=== PATIENT | male | born 1950 | race Caucasian/White ===

== ENCOUNTER 2019-05-11 12:59 | Inpatient (IN) | payer OTHER, MEDICARE ==
[~2019-05-11] VITALS: Ht 182.9 cm; Wt 136.0 kg
[~2019-05-11 12:59] MED LIST: ATOR20; ATOR20 PO; Acidophilus La100 GM; Aspir 8181 MG PO; CITA20 PO; DILT30 PO; GABA300; Loradamed10 MG PO; METF500C PO; METO25 PO; METO25ER; Minipress2 MG; Omeprazole20 M1; Omeprazole20 M1 PO; PREG75 PO; TOCO400 PO; WARF5 PO; ZESTORETIC 20-121 EA PO
[2019-05-11 14:23] LABS: BASOPHILS ABSOLUTE AUTO 0.01 K/mm3 (0.00-0.23); BASOPHILS PERCENT AUTO 0 % (0-2); EOSINOPHILS ABSOLUTE AUTO 0.01 K/mm3 (0.00-0.68); EOSINOPHILS PERCENT AUTO 0 % (0-6); Hematocrit 38.3 % (37.0-53.0); Hemoglobin 13.3 g/dL (13.5-17.5); Mean Corpuscular HGB 29.6 pg (26.0-34.0); Mean Corpuscular HGB Conc 34.7 g/dL (31.5-36.5); Mean Corpuscular Volume 85 fL (80-100); Mean Platelet Volume 10.7 fL (9.1-12.4); Platelet Count 166 K/mm3 (150-400); RDW Coefficient Variation 13.8 % (11.7-14.2); RDW Standard Deviation 42.3 fL (35.1-46.3); Red Blood Cell Count 4.49 M/mm3 (4.30-5.90); White Blood Cell Count 7.65 K/mm3 (4.00-11.30)
[2019-05-11 14:27] LABS: IMMATURE GRAN ABSOLUTE AUTO 0.02 K/mm3 (0.00-0.10); IMMATURE GRAN PERCENT AUTO 0 % (0-1); LYMPHOCYTES ABSOLUTE AUTO 0.64 K/mm3 (0.84-5.20); LYMPHOCYTES PERCENT AUTO 8 % (21-46); MONOCYTES ABSOLUTE AUTO 0.05 K/mm3 (0.16-1.47); MONOCYTES PERCENT AUTO 1 % (4-13); NEUTROPHILS ABSOLUTE AUTO 6.92 K/mm3 (1.96-9.15); NEUTROPHILS PERCENT AUTO 90 % (41-73)
[2019-05-11 14:37] LABS: Albumin, Blood 3.4 g/dL (3.4-5.0); Bilirubin, Total 1.1 mg/dL (0.1-1.0); Bun/Creatinine Ratio 14.7 (12.0-20.0); Calcium, Blood 7.7 mg/dL (8.5-10.1); Creatinine, Blood 1.29 mg/dL (0.60-1.20); Globulin, Blood 3.4 g/dL (2.2-4.0); International Normalized Ratio 3.74; Potassium, Blood 2.3 mmol/L (3.5-5.5); Prothrombin Time Results 35.2 Sec (9.7-11.5); Total Protein, Blood 6.8 g/dL (6.4-8.2)
[2019-05-11 14:40] LABS: Source, Urine Catheter
[2019-05-11 14:51] LABS: Appearance, Urine Hazy (Clear); Bilirubin, Urine Neg (Neg); Blood, Urine 5+ (Neg); Color, Urine Yellow (P-Yellow); Glucose Qualitative, Urine Neg (Neg); Ketones, Urine Neg (Neg); Leukocyte Esterase, Urine 3+ (Neg); Nitrite, Urine Neg (Neg); Protein, Urine 3+ (Neg); Specific Gravity, Urine 1.015 (1.003-1.022); Urobilinogen, Urine NORM (Normal)
[2019-05-11 14:59] LABS: Red Blood Cells, Urine 50-100 /hpf (0-2)
[2019-05-11 15:00] LABS: White Blood Cells, Urine 25-50 /hpf (0-5)
[2019-05-11 15:01] LABS: Bacteria Mod /hpf; Squamous Epithelial Cells Few /hpf (Few)
[2019-05-11] MEDS ORDERED: ALLO300 PO (15:09)
[2019-05-11] MEDS ORDERED: Vitamin D2000 UNIT PO (15:10)
[2019-05-11] MEDS ORDERED: FURO40 PO (15:11)
[2019-05-11] MEDS ORDERED: POTCHL20ER PO (15:13)
[2019-05-11] MEDS ORDERED: WARF5 PO (15:42)
[2019-05-11 16:37] LABS: Creatine Kinase MB 4.1 ng/mL (0.0-3.6)
[2019-05-11 18:10] LABS: PCO2 Arterial 33.5 mmHg (35-45); PO2 Arterial 74.8 mmHg (80-100); pH Blood Arterial 7.43 (7.35-7.45)
--- NOTE | 2019-05-11 18:19 | NUR ---
REPORT RECEIVED FROM ANSON ALTAMIRANO IN EMERGENCY DEPARTMENT
[2019-05-11 19:46] LABS: Bun/Creatinine Ratio 13.9 (12.0-20.0); Calcium, Blood 7.1 mg/dL (8.5-10.1); Creatinine, Blood 1.51 mg/dL (0.60-1.20); Magnesium, Blood 0.8 mg/dL (1.6-2.4); Potassium, Blood 2.8 mmol/L (3.5-5.5)
[2019-05-11] MEDS ORDERED: PRAZ1 PO (21:13)
[2019-05-11] MEDS ORDERED: Lyrica75 MG PO (21:14)
[2019-05-11] MEDS ORDERED: TAMS.4ER PO (21:15)
[2019-05-11 22:03] LABS: Source, Urine Catheter
[2019-05-11 22:08] LABS: Appearance, Urine Cloudy (Clear); Bilirubin, Urine Neg (Neg); Blood, Urine 5+ (Neg); Color, Urine Amber (P-Yellow); Glucose Qualitative, Urine Neg (Neg); Ketones, Urine 1+ (Neg); Leukocyte Esterase, Urine 3+ (Neg); Nitrite, Urine Neg (Neg); Protein, Urine 3+ (Neg); Urobilinogen, Urine NORM (Normal)
[2019-05-11 22:20] LABS: Amorphous Light (0-Heavy); Bacteria Mod /hpf; Red Blood Cells, Urine TNTC /hpf (0-2); Squamous Epithelial Cells Rare /hpf (Few); White Blood Cells, Urine TNTC /hpf (0-5)
--- NOTE | 2019-05-12 | NUR ---
ARRIVAL TO ICU SINCE ARRIVAL TO ICU, PT HAS BEEN ALERT, ORIENTED AND FOLLOWING DIRECTIONS. BP BORDERLINE BUT FLUID RESPONSIVE, SEE FLOWSHEET. OXYGEN SATURATIONS GREATER THAN 90% ON 2 LPM OR WITH USE OF HOME CPAP. PT'S AND DAUGHTER AT BEDSIDE THIS EVENING AND WERE ABLE TO ASSIST WITH HEALTH HISTORY AND MEDICATION RECONCILIATION. KEYES PRESENT ON ADMISSION REPLACED PER PROTOCOL. PT UP TO BEDSIDE COMMODE ONCE FOR URGENT BOWEL MOVEMENT, STOOL SAMPLE SENT TO LAB. PT DID HAVE SMALL AMOUNT OF INCONTINENCE DUE TO THIS URGENCY. ELECTROLYTES ARE BEING REPLACED PER ORDERS. DR. KUMARI AND KRYSTINA, DELIVERY CREW WORKER BOTH TO BEDSIDE FOR ASSESSMENT SINCE ARRIVAL. PT ORIENTED TO CALL LIGHT BUT HAS NOT USED IT SINCE ARRIVAL.
[2019-05-12 00:30] LABS: Campylobacter Sp Not Detected (NOT DETECT)
[2019-05-12 00:31] LABS: Adenovirus F 40/41 Not Detected (NOT DETECT); Astrovirus Not Detected (NOT DETECT); Cryptosporidium Not Detected (NOT DETECT); Cyclospora Cayetanensis Not Detected (NOT DETECT); E. Coli O157 Not Detected (NOT DETECT); Entamoeba Histolytica Not Detected (NOT DETECT); Enteroaggregative E. coli-EAEC Not Detected (NOT DETECT); Enteropathogenic E. coli-EPEC Not Detected (NOT DETECT); Enterotoxigenic E. coli-ETEC Not Detected (NOT DETECT); Giardia Lamblia Not Detected (NOT DETECT); Norovirus GI/GII Not Detected (NOT DETECT); Plesiomonas Shigelloides Not Detected (NOT DETECT); Rotavirus A Not Detected (NOT DETECT); Salmonella Sp Not Detected (NOT DETECT); Sapovirus Not Detected (NOT DETECT); Shiga Toxin-prod E. coli-STEC Not Detected (NOT DETECT); Shigella/Enteroin E. coli-EIEC Not Detected (NOT DETECT); Vibrio Cholerae Not Detected (NOT DETECT); Vibrio Sp Not Detected (NOT DETECT); Yersinia Enterocolitica Not Detected (NOT DETECT)
[2019-05-12 01:00] LABS: Magnesium, Blood 1.2 mg/dL (1.6-2.4)
[2019-05-12 01:01] LABS: Potassium, Blood 3.2 mmol/L (3.5-5.5)
[2019-05-12 01:18] LABS: Phosphorus, Blood 4.2 mg/dL (2.5-4.9)
[2019-05-12] MEDS ORDERED: CEPH500 PO (03:28)
[2019-05-12 06:22] LABS: Hematocrit 33.9 % (37.0-53.0); Hemoglobin 11.3 g/dL (13.5-17.5); Mean Corpuscular HGB Conc 33.3 g/dL (31.5-36.5); Mean Platelet Volume 10.1 fL (9.1-12.4); Platelet Count 136 K/mm3 (150-400); RDW Coefficient Variation 14.4 % (11.7-14.2); RDW Standard Deviation 47.1 fL (35.1-46.3); Red Blood Cell Count 3.77 M/mm3 (4.30-5.90); White Blood Cell Count 19.42 K/mm3 (4.00-11.30)
[2019-05-12 06:24] LABS: Mean Corpuscular Volume 90 fL (80-100)
--- NOTE | 2019-05-12 06:24 | NUR ---
SUMMARY SINCE PREVIOUS NOTE, BLOOD PRESSURE HAS STABALIZED. PT CONTINUES TO BE AFEBRILE. PT HAS SLEPT THE MAJORITY OF THE NIGHT ON HIS CPAP, AROUSING EASILY FOR REASSESSMENTS. PT HAS DENIED PAIN/DISCOMFORT. STAND BY ASSIST TO USE BEDSIDE COMMODE. PT CONTINUES TO HAVE LIQUID, BROWN STOOL. PT HAS TOLERATED JELLO WITHOUT NAUSEA OR ABDOMINAL DISCOMFORT. SEE FLOWSHEETS/ASSESSMENTS.
[2019-05-12 06:32] LABS: International Normalized Ratio 2.76; Prothrombin Time Results 26.7 Sec (9.7-11.5)
[2019-05-12 06:42] LABS: Albumin, Blood 2.8 g/dL (3.4-5.0); Albumin/Globulin Ratio 0.9 (0.8-1.8); Bilirubin, Total 0.8 mg/dL (0.1-1.0); Calcium, Blood 7.2 mg/dL (8.5-10.1); Creatinine, Blood 1.33 mg/dL (0.60-1.20); Globulin, Blood 3.2 g/dL (2.2-4.0); Magnesium, Blood 1.7 mg/dL (1.6-2.4); Phosphorus, Blood 3.3 mg/dL (2.5-4.9); Potassium, Blood 3.7 mmol/L (3.5-5.5)
[2019-05-12 06:43] LABS: BAND PERCENT MAN 21 % (0-8); BASOPHILS PERCENT MAN 0 % (0-2); EOSINOPHILS PERCENT MAN 0 % (0-6); LYMPHOCYTES ABSOLUTE MAN 1.35 K/mm3 (0.84-5.20); LYMPHOCYTES PERCENT MAN 7 % (21-46); MONOCYTES ABSOLUTE MAN 0.38 K/mm3 (0.16-1.47); MONOCYTES PERCENT MAN 2 % (4-13); MYELOCYTE ABSOLUTE MAN 0.38 K/mm3 (0.00-0.00); MYELOCYTE PERCENT MAN 2 % (0-0); NEUTROPHILS ABSOLUTE MAN 17.28 K/mm3 (1.96-9.15); SEG NEUTROPHILS PERCENT MAN 68 % (41-73); TOTAL CELLS COUNTED 100
--- NOTE | 2019-05-12 07:07 | NUR ---
REPORT/CRITICAL RECEIVED CRITICAL BLOOD CULTURE VALUE. REPORT TO ANSON MARRERO TO ASSUME CARE AND REPORT LAB TO . BEDSIDE ROUDING COMPLETED.
--- NOTE | 2019-05-12 09:48 | NUR ---
0700-ASSUMED CARE OF PT. PT IS SLEEPING SOUNDLY WEARING HIS CPAP. WILL ALLOW PATIENT TO SLEEP IN FOR A LITTLE BIT. 0800-PT'S CHRISTINA CALLED FOR UPDATES ON PATIENT. UPDATED HER OF PT'S STATUS 0845-PT AWAKE. ALERT AND ORIENTED. DENIES PAIN. HELPED PT TO THE BEDSIDE COMMODE. PT IS STEADY ON HIS FEET BUT SHORT OF BREATH, ESPECIALLY WITH EXERTION. STARTED PT ON 2 LPM NC OTHERWISE PT WAS ON ROOM AIR ON INTIAL ASSESSMENT WITH CLEAR UPPER AIRWAYS AND DIMINISHED BASES. NOTED PT TO BE WHEEZING WITH EXCERTION. 0948-PT IS CURRENTLY SLEEPING AT THIS TIME AFTER HAVING HIS BREAKFAST.
--- NOTE | 2019-05-12 11:36 | NUR ---
PT SEEN BY DR. KUMARI. UPDATED HIM OF PT'S STATUS. LAB & BLOOD CULTURE RESULTS. FREQUENT BMs - DIARRHEA. ORDERS RECEIVED.
--- NOTE | 2019-05-12 12:30 | NUR ---
DR. ESTRADA CAME BY TO SEE PATIENT. UPDATED HIM OF PATENT'S STATUS.
--- NOTE | 2019-05-12 20:00 | NUR ---
ASSUMED CARE OF PT, REPORT RCV'D FROM ELIDA DILLON RN. PT ALERT AND ORIENTED LAYING IN BED. PT COMPLAINS OF "SHAKING" AND FEELING LIKE HE "HAS A FEVER". TEMPERATURE CHECKED AND PT AFEBRILE. PT ASSISTED TO BEDSIDE COMMODE WHERE HE HAD SMALL LOOSE BOWEL MOVEMENT. PT VERY DYSPNEIC WITH ACTIVITY AND REPORTS FEELING "LIGHTHEADED". O2 SATS REMAINED ABOVE 90'S. AUDIBLE EXPIRATORY WHEEZES HEARD. PT USING HOME CPAP WHILE SLEEPING. VSS. PLEASE SEE FULL SHIFT ASSESSMENT.
--- NOTE | 2019-05-13 05:38 | NUR ---
SHIFT SUMMARY NO ACUTE CHANGES OVERNIGHT. PT'S VSS, NO INCREASING OXYGEN NEEDS, NO NEW COMPLAINTS FROM PT. PT HAD 3 SMALL LOOSE BOWELS THAT PROGRESSIVELY APPEARED MORE FORMED. PT CONTINENT OF BOWEL AND ABLE TO STAND AND PIVOT TO BEDSIDE COMMODE WITH 1-PERSON ASSIST AND MODERATE EXERTION. PT QUICKLY DYSPNEIC WITH ANY EXERTION, AUDIBLE EXPIRATORY WHEEZES HEARD. PT ABLE TO RECOVER SLOWLY AFTER RETURNING TO BED AND USING HOME CPAP. WILL REPORT TO DAYSHIFT NURSE.
[2019-05-13 06:39] LABS: Hematocrit 31.5 % (37.0-53.0); Hemoglobin 10.7 g/dL (13.5-17.5); Mean Corpuscular HGB 29.9 pg (26.0-34.0); Mean Corpuscular Volume 88 fL (80-100); Mean Platelet Volume 10.6 fL (9.1-12.4); Platelet Count 128 K/mm3 (150-400); RDW Coefficient Variation 14.3 % (11.7-14.2); RDW Standard Deviation 45.9 fL (35.1-46.3); Red Blood Cell Count 3.58 M/mm3 (4.30-5.90); White Blood Cell Count 15.39 K/mm3 (4.00-11.30)
[2019-05-13 07:10] LABS: BASOPHILS PERCENT MAN 0 % (0-2); EOSINOPHILS PERCENT MAN 0 % (0-6); LYMPHOCYTES ABSOLUTE MAN 0.92 K/mm3 (0.84-5.20); LYMPHOCYTES PERCENT MAN 6 % (21-46); MONOCYTES ABSOLUTE MAN 0.76 K/mm3 (0.16-1.47); MONOCYTES PERCENT MAN 5 % (4-13); NEUTROPHILS ABSOLUTE MAN 13.69 K/mm3 (1.96-9.15); SEG NEUTROPHILS PERCENT MAN 89 % (41-73); TOTAL CELLS COUNTED 100
[2019-05-13 07:44] LABS: Alanine Aminotransfer (ALT/SGP 28 U/L (12-78); Albumin, Blood 2.5 g/dL (3.4-5.0); Albumin/Globulin Ratio 0.8 (0.8-1.8); Alk Phos 40 U/L (50-136); Anion Gap 6 mmol/L (6-16); Aspartate Aminotrans (AST/SGOT 47 U/L (12-37); Bilirubin, Total 0.7 mg/dL (0.1-1.0); Blood Urea Nitrogen 17 mg/dL (8-24); Bun/Creatinine Ratio 16.7 (12.0-20.0); CO2, Blood 24 mmol/L (21-32); Calcium, Blood 8.3 mg/dL (8.5-10.1); Chloride, Blood 110 mmol/L (98-108); Creatinine, Blood 1.02 mg/dL (0.60-1.20); Globulin, Blood 3.1 g/dL (2.2-4.0); Glomerular Filtration Rate >60 (60-); Glucose, Blood 132 mg/dL (70-99); Magnesium, Blood 1.5 mg/dL (1.6-2.4); Potassium, Blood 3.4 mmol/L (3.5-5.5); Sodium, Blood 140 mmol/L (136-145); Total Protein, Blood 5.6 g/dL (6.4-8.2)
[2019-05-13 07:46] LABS: Vancomycin, Trough 11.3 ug/mL (5.0-10.0)
--- NOTE | 2019-05-13 10:30 | NUR ---
0700-ASSUMED CARE OF PT. PT SLEEPING AT THIS TIME. PT IS WEARING HIS BIPAP FOR SLEEP. 0745-AWAKENED PT FOR MEDS AND BREAKFAST. PT IS ALERT AND ORIENTED. COMPLAINTS OF BACK PAIN. WILL LET PT TRY TO SIT ON THE CHAIR TODAY. PT HAS BEEN REPOSITIONING HIMSELF IN BED. 1030-CURRENTLY PT IS SLEEPING AFTER HE HAD HIS BREAKFAST.
[2019-05-13 15:11] LABS: International Normalized Ratio 2.75; Prothrombin Time Results 26.6 Sec (9.7-11.5)
--- NOTE | 2019-05-13 16:05 | NUR ---
AUDIBLE WHEEZING NOTED. ON AUSCULTATION UPPER R AIRWAY HAS SLIGHT WHEEZING NOTED. PT STATED "IT'S A HARD TO SLEEP WHEN YOU'RE BREATHING LIKE THIS." DR. LUA WAS NOTIFIED. ORDERS RECEIVED.
--- NOTE | 2019-05-13 19:20 | NUR ---
SHIFT SUMMARY: PT WAS ABLE TO GET OUT OF BED TO THE CHAIR AT LUNCH AND DINNER TIME. PT HAD EPISODE OF NAUSEA WHICH HE WAS MEDICATED WITH ZOFRAN. 2 EPISODES OF DIARRHEA IN SMALL AMOUNT. PT WAS STARTED ON LASIX 40MG IV FOR SHORTNESS OF BREATH AND AUDIBLE WHEEZING. PT HAD VERBALIZED THAT BREATHING TREATMENT AND DOSE OF LASIX HAD IMPROVED HIS BREATHING. STILL WHEEZY WITH EXERTION.
--- NOTE | 2019-05-13 22:33 | NUR ---
ASSUMED CARE OF PT, REPORT RCV'D FROM ELIDA DILLON RN. PT ALERT/ORIENTED, STATES THAT HE IS FEELING "MUCH BETTER" THIS EVENING. PT DENIES NAUSEA, VOMITING, OR PAIN AT THIS TIME. PT STATES THAT HE IS "READY FOR BED". PT'S VSS AT THIS TIME. SEE FULL SHIFT ASSESSMENT.
[2019-05-14 04:56] LABS: Anion Gap 7 mmol/L (6-16); Blood Urea Nitrogen 18 mg/dL (8-24); Bun/Creatinine Ratio 15.9 (12.0-20.0); CO2, Blood 26 mmol/L (21-32); Calcium, Blood 7.9 mg/dL (8.5-10.1); Chloride, Blood 105 mmol/L (98-108); Creatinine, Blood 1.13 mg/dL (0.60-1.20); Glomerular Filtration Rate >60 (60-); Glucose, Blood 122 mg/dL (70-99); Potassium, Blood 3.2 mmol/L (3.5-5.5); Sodium, Blood 138 mmol/L (136-145)
[2019-05-14 04:57] LABS: International Normalized Ratio 2.73; Prothrombin Time Results 26.4 Sec (9.7-11.5)
--- NOTE | 2019-05-14 06:37 | NUR ---
SHIFT SUMMARY NO ACUTE CHANGES OVERNIGHT. PT ABLE TO AMBULATE TO BSC AND TO CHAIR WITH STAND BY ASSIST WITH VERY LITTLE DIFFICULTY. PT STILL GETS DYPNEIC WITH EXERTION BUT IS ABLE TO QUICKLY RECOVER, PT DENIES ANY DIZZINESS WITH STANDING AND RECOGNIZES THE NEED TO HAVE A STANDBY ASSIST D/T WEAKNESS. PT REPOSITIONS SELF IN BED AND IS ABLE TO BOOST HIMSELF INDEPENDENTLY. VSS. PT HAD 1800 OF IVAN URINARY OUTPUT. NO INCIDENCE OF DIARRHEA. WILL REPORT TO DAYSMIFT NURSE.
--- NOTE | 2019-05-14 17:56 | NUR ---
SHIFT SUMMARY: PT HAS BEEN BEEN UP FOR EVERY MEAL, UP TO THE SHOWER, AND UP FOR WALKS WITH PT. PT HAS HAD THE KEYES IN SINCE PRIOR TO ARIVING TO THE HOSPITAL. TODAY PT HAD OVER 2,000 ML OF URINE OUT. PT APPEARS TO HAVE TIGHT BREATHING NOTED WHILE VISUALIZING HIM, LUNG SOUNDS ARE CLEAR THOUGH WITH SOME DIMISHED SOUNDS IN THE BASES. VSS T/O THE DAY. CALL LIGHT IN REACH. BED IN LOWEST POSSITION. [facility] ONTINUE TO MONITOR AND REPORT TO ONCOMING RN.
--- NOTE | 2019-05-14 19:30 | NUR ---
ASSUMED CARE OF PT, REPORT RCV'D FROM ANSON MASSEY. PT SLEEPING, EASILY AROUSABLE BY VERBAL STIMULI. PT DENIES NEEDS AT THIS TIME. CALL LIGHT WITHIN REACH, BED IN LOW LOCKED POSITION. SEE FULL SHIFT ASSESSMENT.
--- NOTE | 2019-05-15 06:42 | NUR ---
SHIFT SUMMARY NO ACUTE CHANGES OVERNIGHT. PT SLEPT SOUNDLY WITHOUT ANY NEEDS OR COMPLAINTS. VSS T/O SHIFT. 2200 URINARY OUTPUT. WILL REPORT TO DAYSHIFT NURSE.
[2019-05-15 06:47] LABS: BASOPHILS ABSOLUTE AUTO 0.05 K/mm3 (0.00-0.23); BASOPHILS PERCENT AUTO 1 % (0-2); EOSINOPHILS ABSOLUTE AUTO 0.16 K/mm3 (0.00-0.68); EOSINOPHILS PERCENT AUTO 2 % (0-6); Hematocrit 32.5 % (37.0-53.0); Hemoglobin 11.2 g/dL (13.5-17.5); IMMATURE GRAN ABSOLUTE AUTO 0.11 K/mm3 (0.00-0.10); IMMATURE GRAN PERCENT AUTO 2 % (0-1); LYMPHOCYTES ABSOLUTE AUTO 1.59 K/mm3 (0.84-5.20); LYMPHOCYTES PERCENT AUTO 23 % (21-46); MONOCYTES ABSOLUTE AUTO 0.74 K/mm3 (0.16-1.47); MONOCYTES PERCENT AUTO 11 % (4-13); Mean Corpuscular HGB Conc 34.5 g/dL (31.5-36.5); Mean Corpuscular Volume 87 fL (80-100); NEUTROPHILS ABSOLUTE AUTO 4.28 K/mm3 (1.96-9.15); NEUTROPHILS PERCENT AUTO 62 % (41-73); Platelet Count 139 K/mm3 (150-400); RDW Coefficient Variation 14.2 % (11.7-14.2); RDW Standard Deviation 44.8 fL (35.1-46.3); Red Blood Cell Count 3.73 M/mm3 (4.30-5.90); White Blood Cell Count 6.93 K/mm3 (4.00-11.30)
[2019-05-15 06:59] LABS: International Normalized Ratio 2.13; Prothrombin Time Results 21.1 Sec (9.7-11.5)
[2019-05-15 07:04] LABS: Anion Gap 6 mmol/L (6-16); Blood Urea Nitrogen 19 mg/dL (8-24); Bun/Creatinine Ratio 20.5 (12.0-20.0); CO2, Blood 26 mmol/L (21-32); Calcium, Blood 7.7 mg/dL (8.5-10.1); Chloride, Blood 106 mmol/L (98-108); Creatinine, Blood 0.93 mg/dL (0.60-1.20); Glomerular Filtration Rate >60 (60-); Glucose, Blood 123 mg/dL (70-99); Potassium, Blood 3.2 mmol/L (3.5-5.5); Sodium, Blood 138 mmol/L (136-145)
--- NOTE | 2019-05-15 07:27 | NUR ---
ASSUMED CARE: PT RESTING QUIETLY IN BED. NO ACUTE NEEDS OR CONCERNS AT THIS TIME.
[2019-05-15] MEDS ORDERED: Vitamin D2000 UNIT PO (09:26)
[2019-05-15] MEDS ORDERED: Vsl#3 Capsule1 EACH PO (09:29)
[2019-05-15] MEDS ORDERED: CEFU500T30 PO (09:29)
[2019-05-15] MEDS ORDERED: Prinivil10 MG PO (09:29)
[2019-05-15] MEDS ORDERED: Questran4 GM PO (09:36)
--- NOTE | 2019-05-15 11:30 | NUR ---
PT'S IV'S REMOVED BY HOSPITAL STAFF. FAMILY AT BEDSIDE AND INSTRUCTIONS GIVEN REGARDING MEDICATIONS AND FOLLOW UP APPOINTMENTS. INSTRUCTEDTO FOLLOW UP WITH [facility] REGARDING [facility]OLOGY APPOINTMENT AND CATHETER NEEDS. DENIED FURTHER QUESTIONS OR CONCERNS. ESCORTED OUT VIA WHEEL CHAIR BY HOSPITAL STAFF
== END 2019-05-15 11:20 | disposition home or self-care (01) | DRG 871 ==
LOC: ER 12:59 → ICUW 16:52
PROVIDERS: Internal Medicine Critical Care Medicine; Nurse Practitioner Acute Care; Physician Assistant; ADMIT Internal Medicine
DX: A41.51 Sepsis due to Escherichia coli [E. coli] (principal); G92 Toxic encephalopathy; R65.21 Severe sepsis with septic shock; I21.4 Non-ST elevation (NSTEMI) myocardial infarction; Z68.41 Body mass index [BMI] 40.0-44.9, adult; N17.9 Acute kidney failure, unspecified; N39.0 Urinary tract infection, site not specified; I50.32 Chronic diastolic (congestive) heart failure; Z79.02 Long term (current) use of antithrombotics/antiplatelets; Z79.84 Long term (current) use of oral hypoglycemic drugs; I71.4 Abdominal aortic aneurysm, without rupture; Z86.73 Personal history of transient ischemic attack (TIA), and cerebral infarction without residual deficits; Z86.718 Personal history of other venous thrombosis and embolism; Z87.891 Personal history of nicotine dependence; I25.10 Atherosclerotic heart disease of native coronary artery without angina pectoris; F32.9 Major depressive disorder, single episode, unspecified; E11.9 Type 2 diabetes mellitus without complications; M10.9 Gout, unspecified; E66.01 Morbid (severe) obesity due to excess calories; G47.33 Obstructive sleep apnea (adult) (pediatric); J44.9 Chronic obstructive pulmonary disease, unspecified; I65.21 Occlusion and stenosis of right carotid artery; G43.909 Migraine, unspecified, not intractable, without status migrainosus; I95.9 Hypotension, unspecified; E83.51 Hypocalcemia; I48.0 Paroxysmal atrial fibrillation; E87.6 Hypokalemia; I11.0 Hypertensive heart disease with heart failure
CPT/HCPCS: 0097U; 36415; 36600; 51702; 71045; 71046; 74176; 80048; 80053; 80202; 81001; 82330; 82550; 82553; 82803; 82947; 83605; 83735; 84100; 84132; 84484; 84550; 85025; 85610; 85730; 87040; 87077; 87086; 87186; 93005; 93010; 94640; 96365; 96366; 96368; 96375; 97110; 97116; 97162; 99285-25; A9270; C1751; C8929; J0610; J0692; J0696; J1940; J2405; J3370; J3475; J3480; J7030; J7040; J7050; J7120; Q9957

== ENCOUNTER 2019-08-01 07:54 | Day surgery (SDC) | payer OTHER ==
[~2019-08-01] VITALS: Ht 175.3 cm; Wt 135.0 kg
[~2019-08-01 07:54] MED LIST changes: +ALLO300 PO; +CEFU500T30 PO; +CEPH500 PO; +FINA5 PO; +FURO40 PO; +K-Dur20 MEQ PO; +Lyrica75 MG PO; +METF500 PO; +POTCHL20ER PO; +PRAZ1 PO; +Prinivil10 MG PO; +Questran4 GM PO; +TAMS.4ER PO; +Vitamin D2000 UNIT PO; +Vsl#3 Capsule1 EACH PO
--- NOTE | 2019-08-01 10:11 | NUR ---
PT RETURNED BACK TO RECOVERY ROOM WITH RIGHT RADIAL TR BAND IN PLACE WITH WRIST BOARD. RIGHT RADIAL TR BAND SITE SOFT NON-TENDER WITH NO HEMATOMA AND NO PULSATILE BLEEDING. PT DENIES CP. CALL LIGHT IN REACH. PT DRINKING WATER.
--- NOTE | 2019-08-01 12:20 | NUR ---
PT AMBULATED TO BR TO VOID.
--- NOTE | 2019-08-01 12:35 | NUR ---
2 cc AIR REMOVED FROM TR BAND. NO BLEEDING AT SITE. ADDITIONAL 6 AIR REMOVED OVER 10 MINUTES. NO BLEEDING AT SITE. TR BAND TO ROOM AIR AT 12:41 PM.
--- NOTE | 2019-08-01 12:41 | NUR ---
DEFLATED RIGHT TR BAND SITE SOFT NON-TENDER WITH NO HEMATOMA AND NO PULSATILE BLEEDING; PT'S IN ROOM.
--- NOTE | 2019-08-01 13:00 | NUR ---
DISCHARGE INSTRUCTIONS REVIEWED ALL QUESTIONS ANSWERED. NO CHANGES TO DEFLATED RIGHT TR BAND SITE.
--- NOTE | 2019-08-01 13:46 | NUR ---
DEFLATED RIGHT TR BAND REMOVED AND POLYMEM PLACED OVER RIGHT RADIAL SITE WITH WRIST BOARD. RIGHT RADIAL SITE SOFT NON-TENDER WITH NO HEMATOMA AND NO PULSATILE BLEEDING. 20 G IV REMOVED FROM RIGHT FOREARM WITH INTACT CANNULA. RIGHT ARM SLING PLACED. PT ESCORTED OUT VIA WHEELCHAIR ESCORT.
== END 2019-08-01 13:45 | disposition home or self-care (01) ==
LOC: MHTC 07:54
PROC: B205YZZ Plain Radiography of Left Heart using Other Contrast (ICD-10-PCS; principal; 2019-08-01)
PROC: B201YZZ Plain Radiography of Multiple Coronary Arteries using Other Contrast (ICD-10-PCS; principal; 2019-08-01)
PROC: 4A023N7 Measurement of Cardiac Sampling and Pressure, Left Heart, Percutaneous Approach (ICD-10-PCS; principal; 2019-08-01)
DX: I25.119 Atherosclerotic heart disease of native coronary artery with unspecified angina pectoris (principal); I10 Essential (primary) hypertension; E66.01 Morbid (severe) obesity due to excess calories; J44.9 Chronic obstructive pulmonary disease, unspecified; E11.9 Type 2 diabetes mellitus without complications; I21.4 Non-ST elevation (NSTEMI) myocardial infarction; I65.29 Occlusion and stenosis of unspecified carotid artery; Z79.01 Long term (current) use of anticoagulants; Z79.899 Other long term (current) drug therapy; Z87.891 Personal history of nicotine dependence; Z88.6 Allergy status to analgesic agent; Z88.5 Allergy status to narcotic agent; Z79.84 Long term (current) use of oral hypoglycemic drugs
CPT/HCPCS: 85347; 93458; 99152; 99153; C1769; C1894; J1644; J2250; J3010; J7030; Q9967

== ENCOUNTER 2020-10-29 15:46 | Inpatient (IN) | payer OTHER ==
[~2020-10-29] VITALS: Ht 175.3 cm; Wt 136.1 kg
[~2020-10-29 15:46] MED LIST changes: -ATOR20 PO; +ATOR40TA PO; +OMEP20ER PO; -Omeprazole20 M1 PO; +THERA-D2000 UNIT PO
[2020-10-29 16:46] LABS: BASOPHILS ABSOLUTE AUTO 0.04 K/mm3 (0.00-0.23); BASOPHILS PERCENT AUTO 1 % (0-2); EOSINOPHILS ABSOLUTE AUTO 0.13 K/mm3 (0.00-0.68); EOSINOPHILS PERCENT AUTO 2 % (0-6); Hematocrit 34.2 % (37.0-53.0); Hemoglobin 11.8 g/dL (13.5-17.5); IMMATURE GRAN ABSOLUTE AUTO 0.04 K/mm3 (0.00-0.10); IMMATURE GRAN PERCENT AUTO 1 % (0-1); LYMPHOCYTES ABSOLUTE AUTO 1.71 K/mm3 (0.84-5.20); LYMPHOCYTES PERCENT AUTO 22 % (21-46); MONOCYTES ABSOLUTE AUTO 0.52 K/mm3 (0.16-1.47); MONOCYTES PERCENT AUTO 7 % (4-13); Mean Corpuscular HGB 29.9 pg (26.0-34.0); Mean Corpuscular HGB Conc 34.5 g/dL (31.5-36.5); Mean Corpuscular Volume 87 fL (80-100); Mean Platelet Volume 10.4 fL (9.1-12.4); NEUTROPHILS ABSOLUTE AUTO 5.45 K/mm3 (1.96-9.15); NEUTROPHILS PERCENT AUTO 69 % (41-73); Platelet Count 151 K/mm3 (150-400); RDW Coefficient Variation 13.8 % (11.7-14.2); RDW Standard Deviation 42.5 fL (35.1-46.3); Red Blood Cell Count 3.95 M/mm3 (4.30-5.90); White Blood Cell Count 7.89 K/mm3 (4.00-11.30)
[2020-10-29 17:01] LABS: Alanine Aminotransfer (ALT/SGP 38 U/L (12-78); Albumin, Blood 3.5 g/dL (3.4-5.0); Albumin/Globulin Ratio 1.2 (0.8-1.8); Alk Phos 41 U/L (50-136); Anion Gap 8 mmol/L (6-16); Aspartate Aminotrans (AST/SGOT 27 U/L (12-37); Bilirubin, Total 0.7 mg/dL (0.1-1.0); Blood Urea Nitrogen 21 mg/dL (8-24); Bun/Creatinine Ratio 22.1 (12.0-20.0); CO2, Blood 28 mmol/L (21-32); Calcium, Blood 8.1 mg/dL (8.5-10.1); Chloride, Blood 104 mmol/L (98-108); Creatinine, Blood 0.95 mg/dL (0.60-1.20); Globulin, Blood 2.9 g/dL (2.2-4.0); Glomerular Filtration Rate >60 (60-); Glucose, Blood 138 mg/dL (70-99); Potassium, Blood 3.2 mmol/L (3.5-5.5); Sodium, Blood 140 mmol/L (136-145); Total Protein, Blood 6.4 g/dL (6.4-8.2)
[2020-10-29 17:33] LABS: Influenza A, PCR NEGATIVE (NEGATIVE); Influenza B, PCR NEGATIVE (NEGATIVE); Resp Syncytial Virus, PCR NEGATIVE (NEGATIVE); SARS-Cov-2 (COVID-19) PCR, MMC NEGATIVE (NEGATIVE)
[2020-10-29 17:52] LABS: Source, Urine Clean Catch
[2020-10-29] MEDS ORDERED: METF500 PO ×2 (17:55→22:01)
[2020-10-29 18:12] LABS: Appearance, Urine Clear (Clear); Bilirubin, Urine Neg (Neg); Blood, Urine Neg (Neg); Color, Urine Yellow (P-Yellow); Glucose Qualitative, Urine Neg (Neg); Ketones, Urine Neg (Neg); Leukocyte Esterase, Urine 2+ (Neg); Nitrite, Urine Neg (Neg); Protein, Urine Neg (Neg); Urobilinogen, Urine NORM (Normal)
[2020-10-29 18:26] LABS: Bacteria Many /hpf; Red Blood Cells, Urine 0-2 /hpf (0-2); Squamous Epithelial Cells Few /hpf (Few)
[2020-10-29 20:49] LABS: International Normalized Ratio 3.52; Prothrombin Time Results 35.1 Sec (9.7-11.5)
[2020-10-29] MEDS ORDERED: AMOCLA500 PO (21:41)
[2020-10-29] MEDS ORDERED: ASCO500 PO (21:42)
[2020-10-29] MEDS ORDERED: FERSU300 PO (21:44)
[2020-10-29] MEDS ORDERED: Prinivil10 MG PO (21:45)
[2020-10-29] MEDS ORDERED: PREG75 PO (21:48)
[2020-10-29] MEDS ORDERED: TAMS.4ER PO (21:48)
[2020-10-29] MEDS ORDERED: WARF5 PO (21:51)
[2020-10-30 05:01] LABS: BASOPHILS ABSOLUTE AUTO 0.03 K/mm3 (0.00-0.23); BASOPHILS PERCENT AUTO 0 % (0-2); EOSINOPHILS ABSOLUTE AUTO 0.15 K/mm3 (0.00-0.68); EOSINOPHILS PERCENT AUTO 2 % (0-6); Hematocrit 32.1 % (37.0-53.0); Hemoglobin 11.2 g/dL (13.5-17.5); IMMATURE GRAN ABSOLUTE AUTO 0.03 K/mm3 (0.00-0.10); IMMATURE GRAN PERCENT AUTO 0 % (0-1); LYMPHOCYTES ABSOLUTE AUTO 2.51 K/mm3 (0.84-5.20); LYMPHOCYTES PERCENT AUTO 35 % (21-46); MONOCYTES PERCENT AUTO 8 % (4-13); Mean Corpuscular HGB Conc 34.9 g/dL (31.5-36.5); Mean Corpuscular Volume 86 fL (80-100); Mean Platelet Volume 10.7 fL (9.1-12.4); NEUTROPHILS ABSOLUTE AUTO 3.86 K/mm3 (1.96-9.15); NEUTROPHILS PERCENT AUTO 54 % (41-73); Platelet Count 143 K/mm3 (150-400); RDW Coefficient Variation 13.7 % (11.7-14.2); Red Blood Cell Count 3.73 M/mm3 (4.30-5.90); White Blood Cell Count 7.18 K/mm3 (4.00-11.30)
[2020-10-30 05:12] LABS: International Normalized Ratio 3.61; Prothrombin Time Results 35.9 Sec (9.7-11.5)
[2020-10-30 05:13] LABS: Alanine Aminotransfer (ALT/SGP 32 U/L (12-78); Albumin/Globulin Ratio 1.1 (0.8-1.8); Alk Phos 36 U/L (50-136); Anion Gap 8 mmol/L (6-16); Aspartate Aminotrans (AST/SGOT 21 U/L (12-37); Bilirubin, Total 0.7 mg/dL (0.1-1.0); Blood Urea Nitrogen 14 mg/dL (8-24); Bun/Creatinine Ratio 16.7 (12.0-20.0); CO2, Blood 27 mmol/L (21-32); Calcium, Blood 7.7 mg/dL (8.5-10.1); Chloride, Blood 107 mmol/L (98-108); Creatinine, Blood 0.84 mg/dL (0.60-1.20); Globulin, Blood 2.7 g/dL (2.2-4.0); Glomerular Filtration Rate >60 (60-); Glucose, Blood 133 mg/dL (70-99); Potassium, Blood 2.9 mmol/L (3.5-5.5); Sodium, Blood 142 mmol/L (136-145); Total Protein, Blood 5.7 g/dL (6.4-8.2)
--- NOTE | 2020-10-30 05:13 | NUR ---
SHIFT SUMMARY ADMITTED AT HS LAST EVENING WITH DX OF LACTIC ACIDOSIS AND POSSILE UTI. LACTIC ACID WAS ELEVATED - SEE CHART. IVF AND POTASSIUM ADMINISTERED PER MD ORDERS -SEE MAR FOR DETAILS. ALERT AND ORIENTED X 4. UP AD BERNABE, NO NOTED DISTRESS THIS SHIFT. CALL LIGHT IN REACH.
--- NOTE | 2020-10-30 08:07 | NUR ---
POTASSIUM Clarified orders with Dr. Woodruff. Per T.O. patient is to have a total of 60 MEQ of potassium PO this morning. One time dose order changed to 40 mEq in addition to daily scheduled dose of 20 mEq for a total of 60 mEq.
--- NOTE | 2020-10-30 18:41 | NUR ---
Shift Summary A/Ox2 to self, family, and hospital. Intermittent confusion with moments of lucidness. Up in room c SBA d/t lines. C/O mild RAMIREZ for which medicated per EMAR with good relief. Also c/o mild nausea, resolved with med. Patient has somewhat of a nonsensical speech. Does not always answer questions appropriately. Tele: SR 64 first degree BBB. at bedside during visiting hours. Appetite is okay. Oral intake is good. Denies dysuria. No acute concern. Bed in lowest position, call light near.
--- NOTE | 2020-10-30 19:02 | NUR ---
DNR/DNI CODE STATUS Per Dr. Gilman's note from H&P, family requesting DNR/DNI status. This was confirmed with Maylin () in person that they do infact want this. According to Maylin, patient does have a POLST at home already notarized and she will bring in copy tomorrow (10/31/20) to place on file. Dr. Woodruff notified. Awaiting updated code status order.
--- NOTE | 2020-10-30 20:08 | NUR ---
AWAKE, UP TO BATHROOM TO VOID, BACK TO BED, TELE AND O2 PULSE OX REATTACHED. CALL LIGHT IN REACH
--- NOTE | 2020-10-31 03:50 | NUR ---
SHIFT SUMMARY AWAKE AT INTERVALS, PULLED IV OUT AND CONTINUES TO REMOVE CONTINUOUS PULSE OX FROM FINGERS. MED [employer] IN USE. SINUS EDY. O2 SATS IN THE 90'S. WILL TRY TO PLACE ANOTHER IV LATER WHEN PT LESS ANXIOUS. CALL LIGHT IN REACH. NO NOTED ACUTE PHYSICAL DISTRESS.
[2020-10-31 05:35] LABS: BASOPHILS ABSOLUTE AUTO 0.04 K/mm3 (0.00-0.23); BASOPHILS PERCENT AUTO 1 % (0-2); EOSINOPHILS ABSOLUTE AUTO 0.17 K/mm3 (0.00-0.68); EOSINOPHILS PERCENT AUTO 2 % (0-6); Hematocrit 30.2 % (37.0-53.0); Hemoglobin 10.8 g/dL (13.5-17.5); IMMATURE GRAN ABSOLUTE AUTO 0.02 K/mm3 (0.00-0.10); IMMATURE GRAN PERCENT AUTO 0 % (0-1); LYMPHOCYTES ABSOLUTE AUTO 2.48 K/mm3 (0.84-5.20); LYMPHOCYTES PERCENT AUTO 33 % (21-46); MONOCYTES ABSOLUTE AUTO 0.66 K/mm3 (0.16-1.47); MONOCYTES PERCENT AUTO 9 % (4-13); Mean Corpuscular HGB 30.9 pg (26.0-34.0); Mean Corpuscular HGB Conc 35.8 g/dL (31.5-36.5); Mean Corpuscular Volume 86 fL (80-100); Mean Platelet Volume 10.5 fL (9.1-12.4); NEUTROPHILS ABSOLUTE AUTO 4.11 K/mm3 (1.96-9.15); NEUTROPHILS PERCENT AUTO 55 % (41-73); Platelet Count 141 K/mm3 (150-400); RDW Standard Deviation 42.6 fL (35.1-46.3); White Blood Cell Count 7.48 K/mm3 (4.00-11.30)
[2020-10-31 06:01] LABS: Albumin, Blood 3.1 g/dL (3.4-5.0); Anion Gap 9 mmol/L (6-16); Blood Urea Nitrogen 11 mg/dL (8-24); Bun/Creatinine Ratio 12.5 (12.0-20.0); CO2, Blood 25 mmol/L (21-32); Calcium, Blood 7.3 mg/dL (8.5-10.1); Chloride, Blood 105 mmol/L (98-108); Creatinine, Blood 0.88 mg/dL (0.60-1.20); Glomerular Filtration Rate >60 (60-); Glucose, Blood 116 mg/dL (70-99); Phosphorus, Blood 2.1 mg/dL (2.5-4.9); Sodium, Blood 139 mmol/L (136-145)
[2020-10-31 06:13] LABS: Magnesium, Blood 0.4 mg/dL (1.6-2.4)
--- NOTE | 2020-10-31 06:28 | NUR ---
CRITICAL MAGNESIUM CALLED TO FLOOR - NOTIFIED AND ORDERS OBTAINED. SEE LABS FOR DETAILS - JCRN
--- NOTE | 2020-10-31 09:11 | NUR ---
RESTRAINTS PATIENT PULLING OUT IV MULTIPLE TIMES AND UNHOOKING SELF FROM MAGNESIUM IV INFUSION. DESPITE MULTIPLE REORIENTATION, PATIENT IS FORGETFUL AND CONFUSED. RECEIVED T.O. FROM DR. CALVERT FOR BILATERAL WRIST RESTRAINTS TO PROTECT LINES. ORDER UPDATED.
[2020-10-31 09:32] LABS: International Normalized Ratio 2.35
--- NOTE | 2020-10-31 11:49 | NUR ---
LOCKED AND VEST RESTRAINTS PATIENT WAS ABLE TO GET OUT OF BILATERAL SOFT WRIST RESTRAINTS TWICE. PULLED OUT IV AND REMOVING TELEMETRY LEADS. RECEIVED V.O. FROM DR. CALVERT TO PLACE LOCKED BILATERAL WRIST RESTRAINTS AND A VEST RESTRAINT. PATIENT ALSO ADAMANT ABOUT LEAVING THE HOSPITAL. STARTING TO BE DIFFICULT TO REDIRECT. A/O X [address].
--- NOTE | 2020-10-31 11:52 | NUR ---
LAB MAGNESIUM V.O. FROM DR. CALVERT TO RECHECK MAG LEVELS S/P MAG IVPB INFUSION. ORDER PLACED.
--- NOTE | 2020-10-31 19:37 | NUR ---
Shift Summary Mentation has not changed since yesterday. Patient remains forgetful and, at one point, was difficult to redirect. Patient pulled out IV's, taken self off telemetry, and removed oximetry multiple times throughout shift. Soft wrist restraints applied and patient was able to get out of these twice. Placed vest restraints and tuff cuffs but patient also broke through them and continued pulling out IV's/tele/oximetry. Received T.O. to go ahead and d/c telemetry and oximetry. Presence of at the bedside provides a calming affect. DNR band to R wrist, verified with Danis-RN. Second Mag Sulfate IV infusing at shift change. Appetite is good. Report given at the bedside to oncoming RN.
[2020-11-01 05:31] LABS: International Normalized Ratio 1.68; Prothrombin Time Results 17.5 Sec (9.7-11.5)
--- NOTE | 2020-11-01 05:51 | NUR ---
PRE PRESS PROOFER SUMMARY PT A&O2-3, FORGETFUL AND PLEASANTLY CONFUSED AT TIMES, EASILY REDIRECTABLE BY STAFF. COOPERATIVE WITH CARE. AT BEDSIDE T/O SHIFT. NO C/O PAIN OR ANY DISCOMFORT THIS SHIFT. DENIES CP, SOB, OR N&V. PT SBA TO BATHROOM, DENIES DYSURIA. PT REFUSED TO WEAR CPAP AND CONT BIOX DURING SLEEP. NO ACUTE CHANGES NOTED THI SHIFT, BED AT LOWEST POSITION, CURRENTLY RESTING IN BED W/ AT BEDSIDE. BED AT LOWEST POSITION. CALL LIGHT WITHIN REACH.
[2020-11-01 08:11] LABS: Anion Gap 11 mmol/L (6-16); Blood Urea Nitrogen 10 mg/dL (8-24); Bun/Creatinine Ratio 12.8 (12.0-20.0); CO2, Blood 23 mmol/L (21-32); Chloride, Blood 107 mmol/L (98-108); Creatinine, Blood 0.78 mg/dL (0.60-1.20); Glomerular Filtration Rate >60 (60-); Glucose, Blood 97 mg/dL (70-99); Potassium, Blood 3.1 mmol/L (3.5-5.5); Sodium, Blood 141 mmol/L (136-145)
--- NOTE | 2020-11-01 09:01 | NUR ---
pt sitting up in chair, at bedside to keep him calm, a/ox2, good spirits, states he is much more clear mentation than yesterday, coopertive with care, follows commands well, denies pain, lungs are clear t/o, resp even and unlabored, no cough noted, on r/a, hrr, rate is low, in the 50s, will hold cardiac meds until speak with DrKati, iv site is clear and patent, btx4, abd flat soft nontender, voids without diff, skin c/w/d, maew, vamsi, call light in reach.
[2020-11-01] MEDS ORDERED: Florastor250 MG PO (13:28)
[2020-11-01] MEDS ORDERED: CEFD300 PO ×2 (13:29→15:09)
[2020-11-01] MEDS ORDERED: MAGNESIUM OXID400 M1 PO (13:31)
[2020-11-01] MEDS ORDERED: ENOX100I SC (15:10)
[2020-11-01] MEDS ORDERED: ASPI81CH PO (15:11)
--- NOTE | 2020-11-01 15:52 | NUR ---
Discharge Summary Patient discharging to home. Reviewed d/c paperwork with patient and Maylin at the bedside. Questions were answered to their satisfaction. Copy of d/c provided. Meds faxed to [facility] and [facility] per request. IV removed WNL. Personal belongings including home CPAP machine sent home. Escorted by [employer] via w/c. Side effects of new meds reviewed with both.
== END 2020-11-01 15:38 | disposition home or self-care (01) | DRG 689 ==
LOC: ER 15:46 → MEDS 15:47
PROVIDERS: Hospitalist; Internal Medicine; Physician Assistant; ADMIT Internal Medicine
DX: N39.0 Urinary tract infection, site not specified (principal); G92 Toxic encephalopathy; E87.2 Acidosis; B96.20 Unspecified Escherichia coli [E. coli] as the cause of diseases classified elsewhere; Z20.822 Contact with and (suspected) exposure to COVID-19; Z66 Do not resuscitate; N40.0 Benign prostatic hyperplasia without lower urinary tract symptoms; I25.10 Atherosclerotic heart disease of native coronary artery without angina pectoris; I10 Essential (primary) hypertension; E87.6 Hypokalemia; E83.42 Hypomagnesemia; G47.33 Obstructive sleep apnea (adult) (pediatric); E11.9 Type 2 diabetes mellitus without complications; J44.9 Chronic obstructive pulmonary disease, unspecified; M10.9 Gout, unspecified; Z86.718 Personal history of other venous thrombosis and embolism; Z86.73 Personal history of transient ischemic attack (TIA), and cerebral infarction without residual deficits; Z79.01 Long term (current) use of anticoagulants; Z79.84 Long term (current) use of oral hypoglycemic drugs; Z87.891 Personal history of nicotine dependence
CPT/HCPCS: 0241U; 36415; 70450; 71046; 80048; 80053; 80069; 81001; 82947; 83605; 83735; 83880; 84484; 85025; 85610; 85730; 87040; 87077; 87086; 87186; 93005; 93010; 94660; 94762; 96361; 96374; 96376; 99285-25; A9270; G0378; J0696; J1650; J2405; J3475; J7030

== ENCOUNTER 2021-05-19 09:21 | Emergency (ER) | payer OTHER ==
[~2021-05-19] VITALS: Ht 175.3 cm; Wt 136.1 kg
[~2021-05-19 09:21] MED LIST changes: +AMOCLA500 PO; +ASCO500 PO; +ASPI81CH PO; +CEFD300 PO; +ENOX100I SC; +FERSU300 PO; +Florastor250 MG PO; +MAGNESIUM OXID400 M1 PO
[2021-05-19 10:56] LABS: BASOPHILS ABSOLUTE AUTO 0.06 K/mm3 (0.00-0.23); BASOPHILS PERCENT AUTO 1 % (0-2); EOSINOPHILS ABSOLUTE AUTO 0.12 K/mm3 (0.00-0.68); EOSINOPHILS PERCENT AUTO 1 % (0-6); Hematocrit 31.2 % (37.0-53.0); Hemoglobin 10.5 g/dL (13.5-17.5); IMMATURE GRAN ABSOLUTE AUTO 0.04 K/mm3 (0.00-0.10); IMMATURE GRAN PERCENT AUTO 0 % (0-1); LYMPHOCYTES ABSOLUTE AUTO 1.28 K/mm3 (0.84-5.20); LYMPHOCYTES PERCENT AUTO 14 % (21-46); MONOCYTES ABSOLUTE AUTO 0.61 K/mm3 (0.16-1.47); MONOCYTES PERCENT AUTO 7 % (4-13); Mean Corpuscular HGB 29.2 pg (26.0-34.0); Mean Corpuscular HGB Conc 33.7 g/dL (31.5-36.5); Mean Corpuscular Volume 87 fL (80-100); NEUTROPHILS ABSOLUTE AUTO 6.87 K/mm3 (1.96-9.15); NEUTROPHILS PERCENT AUTO 77 % (41-73); RDW Coefficient Variation 13.6 % (11.7-14.2); Red Blood Cell Count 3.59 M/mm3 (4.30-5.90); White Blood Cell Count 8.98 K/mm3 (4.00-11.30)
[2021-05-19 11:09] LABS: Alanine Aminotransfer (ALT/SGP 24 U/L (12-78); Albumin, Blood 2.7 g/dL (3.4-5.0); Albumin/Globulin Ratio 0.7 (0.8-1.8); Alk Phos 61 U/L (50-136); Anion Gap 9 mmol/L (6-16); Aspartate Aminotrans (AST/SGOT 17 U/L (12-37); Bilirubin, Total 0.5 mg/dL (0.1-1.0); Blood Urea Nitrogen 16 mg/dL (8-24); Bun/Creatinine Ratio 17.5 (12.0-20.0); CO2, Blood 25 mmol/L (21-32); Calcium, Blood 8.8 mg/dL (8.5-10.1); Chloride, Blood 101 mmol/L (98-108); Creatinine, Blood 0.91 mg/dL (0.60-1.20); Ethanol (Alcohol), Blood, Med <3 mg/dL; Globulin, Blood 4.1 g/dL (2.2-4.0); Glomerular Filtration Rate >60 (60-); Glucose, Blood 233 mg/dL (70-99); Potassium, Blood 3.8 mmol/L (3.5-5.5); Sodium, Blood 135 mmol/L (136-145); Total Protein, Blood 6.8 g/dL (6.4-8.2)
[2021-05-19 11:55] LABS: Mean Platelet Volume 9.7 fL (9.1-12.4); Platelet Count 359 K/mm3 (150-400)
[2021-05-19 12:39] LABS: International Normalized Ratio 1.06; Prothrombin Time Results 11.1 Sec (9.7-11.5)
== END 2021-05-19 13:16 | disposition home or self-care (01) ==
LOC: ER 09:21
PROVIDERS: Physician Assistant
DX: R29.810 Facial weakness (principal); R41.0 Disorientation, unspecified; I10 Essential (primary) hypertension; I25.10 Atherosclerotic heart disease of native coronary artery without angina pectoris; E11.9 Type 2 diabetes mellitus without complications; G47.30 Sleep apnea, unspecified; G43.909 Migraine, unspecified, not intractable, without status migrainosus; Z88.8 Allergy status to other drugs, medicaments and biological substances; Z79.899 Other long term (current) drug therapy; Z79.01 Long term (current) use of anticoagulants; Z79.82 Long term (current) use of aspirin; Z86.73 Personal history of transient ischemic attack (TIA), and cerebral infarction without residual deficits
CPT/HCPCS: 70450; 71045; 80053; 83880; 84484; 85025; 85610; 85730; 93005; 93010; 99284-25; G0480

== ENCOUNTER 2021-07-01 18:16 | Emergency (ER) | payer OTHER ==
[~2021-07-01] VITALS: Ht 177.8 cm; Wt 136.1 kg
[2021-07-01 18:48] LABS: BASOPHILS ABSOLUTE AUTO 0.05 K/mm3 (0.00-0.23); BASOPHILS PERCENT AUTO 1 % (0-2); EOSINOPHILS ABSOLUTE AUTO 0.16 K/mm3 (0.00-0.68); EOSINOPHILS PERCENT AUTO 2 % (0-6); Hematocrit 34.7 % (37.0-53.0); Hemoglobin 11.3 g/dL (13.5-17.5); IMMATURE GRAN ABSOLUTE AUTO 0.02 K/mm3 (0.00-0.10); IMMATURE GRAN PERCENT AUTO 0 % (0-1); LYMPHOCYTES ABSOLUTE AUTO 1.54 K/mm3 (0.84-5.20); LYMPHOCYTES PERCENT AUTO 18 % (21-46); MONOCYTES PERCENT AUTO 7 % (4-13); Mean Corpuscular HGB 26.7 pg (26.0-34.0); Mean Corpuscular HGB Conc 32.6 g/dL (31.5-36.5); Mean Corpuscular Volume 82 fL (80-100); Mean Platelet Volume 9.6 fL (9.1-12.4); NEUTROPHILS ABSOLUTE AUTO 6.13 K/mm3 (1.96-9.15); NEUTROPHILS PERCENT AUTO 72 % (41-73); Platelet Count 192 K/mm3 (150-400); RDW Coefficient Variation 14.1 % (11.7-14.2); RDW Standard Deviation 41.5 fL (35.1-46.3); Red Blood Cell Count 4.23 M/mm3 (4.30-5.90)
[2021-07-01 19:04] LABS: International Normalized Ratio 1.04; Prothrombin Time Results 10.9 Sec (9.7-11.5)
[2021-07-01 19:24] LABS: Alanine Aminotransfer (ALT/SGP 21 U/L (12-78); Albumin, Blood 2.8 g/dL (3.4-5.0); Albumin/Globulin Ratio 0.7 (0.8-1.8); Alk Phos 60 U/L (50-136); Anion Gap 7 mmol/L (6-16); Aspartate Aminotrans (AST/SGOT 16 U/L (12-37); Bilirubin, Total 0.3 mg/dL (0.1-1.0); Blood Urea Nitrogen 13 mg/dL (8-24); Bun/Creatinine Ratio 16.5 (12.0-20.0); CO2, Blood 27 mmol/L (21-32); Calcium, Blood 8.5 mg/dL (8.5-10.1); Chloride, Blood 103 mmol/L (98-108); Creatinine, Blood 0.79 mg/dL (0.60-1.20); Globulin, Blood 3.9 g/dL (2.2-4.0); Glomerular Filtration Rate >60 (60-); Glucose, Blood 183 mg/dL (70-99); Potassium, Blood 3.7 mmol/L (3.5-5.5); Sodium, Blood 137 mmol/L (136-145); Total Protein, Blood 6.7 g/dL (6.4-8.2)
[2021-07-01 20:13] LABS: Source, Urine Clean Catch
[2021-07-01 20:16] LABS: Appearance, Urine Clear (Clear); Bilirubin, Urine Neg (Neg); Blood, Urine Neg (Neg); Color, Urine Yellow (P-Yellow); Glucose Qualitative, Urine Neg (Neg); Ketones, Urine Neg (Neg); Leukocyte Esterase, Urine Neg (Neg); Nitrite, Urine Neg (Neg); Protein, Urine 2+ (Neg); Specific Gravity, Urine 1.015 (1.003-1.022); Urobilinogen, Urine NORM (Normal)
[2021-07-01 20:27] LABS: Bacteria Rare /hpf; Red Blood Cells, Urine 0-2 /hpf (0-2); Squamous Epithelial Cells Few /hpf (Few); White Blood Cells, Urine 0-2 /hpf (0-5)
== END 2021-07-01 21:30 | disposition home or self-care (01) ==
LOC: ER 18:16
PROVIDERS: Emergency Medicine
DX: G45.9 Transient cerebral ischemic attack, unspecified (principal); I10 Essential (primary) hypertension; I25.10 Atherosclerotic heart disease of native coronary artery without angina pectoris; E11.9 Type 2 diabetes mellitus without complications; G47.30 Sleep apnea, unspecified; Z88.8 Allergy status to other drugs, medicaments and biological substances; Z79.899 Other long term (current) drug therapy; Z79.01 Long term (current) use of anticoagulants; Z79.84 Long term (current) use of oral hypoglycemic drugs; Z79.82 Long term (current) use of aspirin; Z86.718 Personal history of other venous thrombosis and embolism; Z87.891 Personal history of nicotine dependence
CPT/HCPCS: 70450; 80053; 81001; 85025; 85610; 85730; 93005; 93010; 99285-25

== ENCOUNTER 2022-11-23 19:09 | Emergency (ER) | payer OTHER ==
[~2022-11-23] VITALS: Ht 175.3 cm; Wt 136.1 kg
[~2022-11-23 19:09] MED LIST changes: +LEVE500 PO; +METO25ER PO
[2022-11-23 19:54] LABS: BASOPHILS ABSOLUTE AUTO 0.04 K/mm3 (0.00-0.23); BASOPHILS PERCENT AUTO 1 % (0-2); EOSINOPHILS ABSOLUTE AUTO 0.18 K/mm3 (0.00-0.68); EOSINOPHILS PERCENT AUTO 3 % (0-6); Hematocrit 40.1 % (37.0-53.0); Hemoglobin 13.1 g/dL (13.5-17.5); IMMATURE GRAN ABSOLUTE AUTO 0.02 K/mm3 (0.00-0.10); IMMATURE GRAN PERCENT AUTO 0 % (0-1); LYMPHOCYTES PERCENT AUTO 29 % (21-46); MONOCYTES ABSOLUTE AUTO 0.51 K/mm3 (0.16-1.47); MONOCYTES PERCENT AUTO 7 % (4-13); Mean Corpuscular HGB 27.5 pg (26.0-34.0); Mean Corpuscular HGB Conc 32.7 g/dL (31.5-36.5); Mean Corpuscular Volume 84 fL (80-100); NEUTROPHILS ABSOLUTE AUTO 4.22 K/mm3 (1.96-9.15); NEUTROPHILS PERCENT AUTO 61 % (41-73); Platelet Count 201 K/mm3 (150-400); RDW Coefficient Variation 13.3 % (11.7-14.2); RDW Standard Deviation 40.9 fL (35.1-46.3); Red Blood Cell Count 4.76 M/mm3 (4.30-5.90); White Blood Cell Count 6.97 K/mm3 (4.00-11.30)
[2022-11-23 20:00] LABS: Source, Urine Clean Catch
[2022-11-23 20:09] LABS: Appearance, Urine Clear (Clear); Bilirubin, Urine Neg (Neg); Blood, Urine Neg (Neg); Color, Urine Yellow (P-Yellow); Glucose Qualitative, Urine 4+ (Neg); Ketones, Urine Neg (Neg); Leukocyte Esterase, Urine Neg (Neg); Nitrite, Urine Neg (Neg); Protein, Urine Neg (Neg); Urobilinogen, Urine NORM (Normal)
[2022-11-23 20:19] LABS: Albumin, Blood 3.3 g/dL (3.4-5.0); Albumin/Globulin Ratio 0.8 (0.8-1.8); Bilirubin, Total 0.4 mg/dL (0.1-1.0); Bun/Creatinine Ratio 21.6 (12.0-20.0); Calcium, Blood 8.4 mg/dL (8.5-10.1); Creatinine, Blood 1.02 mg/dL (0.60-1.20); Globulin, Blood 4.1 g/dL (2.2-4.0); Total Protein, Blood 7.4 g/dL (6.4-8.2)
[2022-11-23 20:53] LABS: Base Excess Venous 0.6 mmol/L; Bicarbonate Venous 24.8 mmol/L (24.0-30.0); PCO2 Venous 42.9 mmHg (38-42); pH Blood Venous 7.39 (7.34-7.37)
[2022-11-23 20:57] LABS: Magnesium, Blood 0.8 mg/dL (1.6-2.4)
[2022-11-23 22:15] LABS: Chloride (POC) 96 mmol/L (98-108); Creatinine (POC) 1.1 mg/dL (0.8-1.3); Glucose (ISTAT POC) 435 mg/dL (70-99); Hemoglobin (POC) 12.2 g/dL (13.5-17.5); Potassium (POC) 4.2 mmol/L (3.5-5.5); Sodium (POC) 133 mmol/L (135-148); Total CO2 (POC) 25 mmol/L (21-32)
[2022-11-23] MEDS ORDERED: MAGNESIUM OXID500 MG PO (22:16)
== END 2022-11-23 22:37 | disposition home or self-care (01) ==
LOC: ER 19:09
PROVIDERS: Emergency Medicine
DX: E11.65 Type 2 diabetes mellitus with hyperglycemia (principal); E87.5 Hyperkalemia; E83.42 Hypomagnesemia; Z88.8 Allergy status to other drugs, medicaments and biological substances; Z79.899 Other long term (current) drug therapy; Z79.01 Long term (current) use of anticoagulants; Z79.84 Long term (current) use of oral hypoglycemic drugs; I10 Essential (primary) hypertension; I25.10 Atherosclerotic heart disease of native coronary artery without angina pectoris; M10.9 Gout, unspecified; G47.30 Sleep apnea, unspecified; G43.909 Migraine, unspecified, not intractable, without status migrainosus; Z87.891 Personal history of nicotine dependence
CPT/HCPCS: 36415; 80047; 80053; 81003; 82010; 82803; 82947; 83735; 85014; 85025; 93005; 93010; 96361; 96374; 99283-25; A9270; J1815; J3475; J7030

== ENCOUNTER 2022-11-25 10:27 | Emergency (ER) | payer OTHER ==
[~2022-11-25] VITALS: Ht 175.3 cm; Wt 136.1 kg
[~2022-11-25 10:27] MED LIST changes: +MAGNESIUM OXID500 MG PO
[2022-11-25] MEDS ORDERED: METF500 PO (11:03)
[2022-11-25 11:26] LABS: Base Excess Venous 1.3 mmol/L; Bicarbonate Venous 25.4 mmol/L (24.0-30.0); PCO2 Venous 41.6 mmHg (38-42); pH Blood Venous 7.41 (7.34-7.37)
[2022-11-25 11:35] LABS: Calcium, Ionized (POC) 1.14 mmol/L (1.10-1.46); Chloride (POC) 96 mmol/L (98-108); Glucose (ISTAT POC) 371 mg/dL (70-99); Hemoglobin (POC) 12.6 g/dL (13.5-17.5); Potassium (POC) 4.2 mmol/L (3.5-5.5); Sodium (POC) 132 mmol/L (135-148); Total CO2 (POC) 25 mmol/L (21-32)
[2022-11-25 14:45] VITALS: BP 127/81
== END 2022-11-25 14:58 | disposition home or self-care (01) ==
LOC: ER 10:27
PROVIDERS: Student in an Organized Health Care Education/Training Program
DX: E11.65 Type 2 diabetes mellitus with hyperglycemia (principal); Z88.8 Allergy status to other drugs, medicaments and biological substances; Z79.899 Other long term (current) drug therapy; Z79.01 Long term (current) use of anticoagulants; Z79.84 Long term (current) use of oral hypoglycemic drugs; I10 Essential (primary) hypertension; I25.10 Atherosclerotic heart disease of native coronary artery without angina pectoris; M10.9 Gout, unspecified; G47.33 Obstructive sleep apnea (adult) (pediatric); G43.909 Migraine, unspecified, not intractable, without status migrainosus; Z87.891 Personal history of nicotine dependence
CPT/HCPCS: 36415; 80047; 82803; 82947; 85014; 96360; 96361; 99285-25; J1815; J7030

== ENCOUNTER 2023-06-09 22:07 | Inpatient (IN) | payer OTHER ==
[~2023-06-09] VITALS: Ht 177.8 cm; Wt 97.5 kg
[2023-06-09 22:38] LABS: Source, Urine Clean Catch
[2023-06-09 22:41] LABS: BASOPHILS ABSOLUTE AUTO 0.02 K/mm3 (0.00-0.23); BASOPHILS PERCENT AUTO 0 % (0-2); EOSINOPHILS ABSOLUTE AUTO 0.13 K/mm3 (0.00-0.68); EOSINOPHILS PERCENT AUTO 1 % (0-6); Hematocrit 36.6 % (37.0-53.0); IMMATURE GRAN ABSOLUTE AUTO 0.04 K/mm3 (0.00-0.10); IMMATURE GRAN PERCENT AUTO 0 % (0-1); LYMPHOCYTES ABSOLUTE AUTO 0.46 K/mm3 (0.84-5.20); LYMPHOCYTES PERCENT AUTO 4 % (21-46); MONOCYTES ABSOLUTE AUTO 0.47 K/mm3 (0.16-1.47); MONOCYTES PERCENT AUTO 4 % (4-13); Mean Corpuscular HGB 25.5 pg (26.0-34.0); Mean Corpuscular HGB Conc 32.8 g/dL (31.5-36.5); Mean Corpuscular Volume 78 fL (80-100); Mean Platelet Volume 9.6 fL (9.1-12.4); NEUTROPHILS ABSOLUTE AUTO 11.26 K/mm3 (1.96-9.15); NEUTROPHILS PERCENT AUTO 91 % (41-73); Platelet Count 146 K/mm3 (150-400); RDW Coefficient Variation 16.3 % (11.7-14.2); RDW Standard Deviation 45.6 fL (35.1-46.3); Red Blood Cell Count 4.71 M/mm3 (4.30-5.90); White Blood Cell Count 12.38 K/mm3 (4.00-11.30)
[2023-06-09 22:45] LABS: Bilirubin, Urine Neg (Neg); Blood, Urine 1+ (Neg); Glucose Qualitative, Urine 4+ (Neg); Ketones, Urine Neg (Neg); Leukocyte Esterase, Urine 1+ (Neg); Nitrite, Urine Neg (Neg); Protein, Urine 1+ (Neg); Urobilinogen, Urine NORM (Normal)
[2023-06-09 22:58] LABS: Appearance, Urine Clear (Clear); Color, Urine Yellow (P-Yellow)
[2023-06-09 23:00] LABS: Bacteria Few /hpf; Red Blood Cells, Urine 0-2 /hpf (0-2); Squamous Epithelial Cells Mod /hpf (Few)
[2023-06-09 23:05] LABS: Albumin, Blood 3.5 g/dL (3.4-5.0); Albumin/Globulin Ratio 0.9 (0.8-1.8); Bilirubin, Total 0.5 mg/dL (0.1-1.0); Bun/Creatinine Ratio 16.9 (12.0-20.0); Calcium, Blood 8.7 mg/dL (8.5-10.1); Creatinine, Blood 1.6 mg/dL (0.60-1.20); Globulin, Blood 3.8 g/dL (2.2-4.0); Potassium, Blood 3.9 mmol/L (3.5-5.5); Total Protein, Blood 7.3 g/dL (6.4-8.2)
[2023-06-09 23:43] LABS: Bicarbonate Venous 25.3 mmol/L (24.0-30.0); PCO2 Venous 44.7 mmHg (38-42); pH Blood Venous 7.39 (7.34-7.37)
[2023-06-09 23:46] LABS: Thyroid Stimulating Hormone 1.18 uIU/mL (0.360-4.800)
[2023-06-09 23:50] LABS: U Amphetamine Screen Not Detected; U Barbituate Screen Not Detected; U Benzodiazapine Screen Not Detected; U Buprenorphine Screen Not Detected; U Cannabinoids Screen Not Detected; U Cocaine Screen Not Detected; U Methadone Screen Not Detected; U Methamphetamine Screen Not Detected; U Opiates Screen Not Detected; U Oxycodone Screen Not Detected; U Phencyclidine Screen Not Detected; U Propoxyphene Screen Not Detected
[2023-06-09 23:54] LABS: Magnesium, Blood 0.9 mg/dL (1.6-2.4); Phosphorus, Blood 2.2 mg/dL (2.5-4.9)
[2023-06-10 00:08] LABS: D-Dimer, Quantitative 6.62 mg/L FEU (0.00-0.52); International Normalized Ratio 3.8
[2023-06-10 00:10] LABS: Influenza A, PCR NEGATIVE (NEGATIVE); Influenza B, PCR NEGATIVE (NEGATIVE); Resp Syncytial Virus, PCR NEGATIVE (NEGATIVE); SARS-Cov-2 (COVID-19) PCR, MMC NEGATIVE (NEGATIVE)
[2023-06-10] MEDS ORDERED: ACET500 PO (00:13)
[2023-06-10] MEDS ORDERED: JARDIANCE25 MG PO (00:18)
[2023-06-10] MEDS ORDERED: LISINOPRIL-HCT1 EACH PO (00:19)
[2023-06-10] MEDS ORDERED: POTA10T PO (00:19)
[2023-06-10] MEDS ORDERED: METO25ER PO (00:19)
[2023-06-10] MEDS ORDERED: LORA10ER PO (00:19)
--- NOTE | 2023-06-10 05:53 | NUR ---
REPORT FROM FRANTZ Aggarwal RN IN ER. PATIENT READY FOR TRANSFER TO ROOM 350.
[2023-06-10 06:48] VITALS: BP 127/70
[2023-06-10 06:48] LABS: BASOPHILS ABSOLUTE AUTO 0.02 K/mm3 (0.00-0.23); BASOPHILS PERCENT AUTO 0 % (0-2); EOSINOPHILS ABSOLUTE AUTO 0.26 K/mm3 (0.00-0.68); EOSINOPHILS PERCENT AUTO 2 % (0-6); Hematocrit 35.3 % (37.0-53.0); Hemoglobin 11.6 g/dL (13.5-17.5); IMMATURE GRAN ABSOLUTE AUTO 0.04 K/mm3 (0.00-0.10); IMMATURE GRAN PERCENT AUTO 0 % (0-1); LYMPHOCYTES ABSOLUTE AUTO 0.99 K/mm3 (0.84-5.20); LYMPHOCYTES PERCENT AUTO 8 % (21-46); MONOCYTES ABSOLUTE AUTO 0.58 K/mm3 (0.16-1.47); MONOCYTES PERCENT AUTO 5 % (4-13); Mean Corpuscular HGB 25.4 pg (26.0-34.0); Mean Corpuscular HGB Conc 32.9 g/dL (31.5-36.5); Mean Corpuscular Volume 77 fL (80-100); Mean Platelet Volume 9.3 fL (9.1-12.4); NEUTROPHILS ABSOLUTE AUTO 10.61 K/mm3 (1.96-9.15); NEUTROPHILS PERCENT AUTO 85 % (41-73); Platelet Count 156 K/mm3 (150-400); RDW Coefficient Variation 16.7 % (11.7-14.2); RDW Standard Deviation 46.3 fL (35.1-46.3); Red Blood Cell Count 4.57 M/mm3 (4.30-5.90)
[2023-06-10 07:08] VITALS: BP 115/60
[2023-06-10 07:08] LABS: Albumin, Blood 3.3 g/dL (3.4-5.0); Albumin/Globulin Ratio 0.9 (0.8-1.8); Bilirubin, Total 0.7 mg/dL (0.1-1.0); Bun/Creatinine Ratio 19.3 (12.0-20.0); Calcium, Blood 8.8 mg/dL (8.5-10.1); Creatinine, Blood 1.35 mg/dL (0.60-1.20); Globulin, Blood 3.7 g/dL (2.2-4.0); Magnesium, Blood 1.7 mg/dL (1.6-2.4); Phosphorus, Blood 3.6 mg/dL (2.5-4.9); Potassium, Blood 3.7 mmol/L (3.5-5.5)
[2023-06-10] MEDS ORDERED: NITR100CA PO (07:24)
[2023-06-10] MEDS ORDERED: MAGNESIUM OXID500 MG PO (07:27)
[2023-06-10 14:41] LABS: International Normalized Ratio 2.46; Prothrombin Time Results 24.5 Sec (9.7-11.5)
[2023-06-10 15:49] VITALS: BP 124/57
--- NOTE | 2023-06-10 17:59 | NUR ---
SHIFT SUMMARY PT AOX4, SBA WITH THE FWW TO THE BATHROOM. PT VOIDING WELL. AT THE BS. NO COMPLAINTS FROM THE PT THIS SHIFT. CALLS WELL AND MAKES HIS NEEDS KNOWN. CALL LIGHT WITHIN REACH, BED IN THE LOWEST POSITION. WILL REPORT TO ONCOMING NURSE.
[2023-06-10 19:46] LABS: Adenovirus F 40/41 Not Detected (NOT DETECT); Astrovirus Not Detected (NOT DETECT); Campylobacter Sp Not Detected (NOT DETECT); Cryptosporidium Not Detected (NOT DETECT); Cyclospora Cayetanensis Not Detected (NOT DETECT); E. Coli O157 Not Detected (NOT DETECT); Entamoeba Histolytica Not Detected (NOT DETECT); Enteroaggregative E. coli-EAEC Not Detected (NOT DETECT); Enteropathogenic E. coli-EPEC Not Detected (NOT DETECT); Enterotoxigenic E. coli-ETEC Not Detected (NOT DETECT); Giardia Lamblia Not Detected (NOT DETECT); Norovirus GI/GII Not Detected (NOT DETECT); Plesiomonas Shigelloides Not Detected (NOT DETECT); Rotavirus A Not Detected (NOT DETECT); Salmonella Sp Not Detected (NOT DETECT); Sapovirus Not Detected (NOT DETECT); Shiga Toxin-prod E. coli-STEC Not Detected (NOT DETECT); Shigella/Enteroin E. coli-EIEC Not Detected (NOT DETECT); Vibrio Cholerae Not Detected (NOT DETECT); Vibrio Sp Not Detected (NOT DETECT); Yersinia Enterocolitica Not Detected (NOT DETECT)
[2023-06-10 19:51] VITALS: BP 137/60
--- NOTE | 2023-06-10 22:42 | NUR ---
CALLED DR ALTAMIRANO TO VERIFY IF METOPOROL SHOULD BE GIVEN OR HELD DO TO PULSE RATE. ORDERED TO GIVE.
[2023-06-11 01:24] VITALS: BP 142/75
--- NOTE | 2023-06-11 05:44 | NUR ---
SHIFT SUMMARY PT A&O X4, CALM AND COOPERATIVE WITH CARE. TELEMETRY: SB, 1ST DEG AVB W/ PVC'S AT 59. DENIES ANY CHEST PAIN OR PRESSURE. PT SBA WITH FFW TO RESTROOM. LR @ 100 ML/HR INFUSING/ COMPLETED. HOME CPAP IN PLACE WITH CONTINUOUS PULSE OX IN PLACE MONITORING O2. NO SOB NOTED. BED KEPT IN LOWEST POSITION WITH CALL LIGHT WITHIN REACH. PT KNOWS HOW TO CALL FOR NEEDS.
[2023-06-11 06:04] LABS: International Normalized Ratio 2.02; Prothrombin Time Results 20.4 Sec (9.7-11.5)
--- NOTE | 2023-06-11 06:24 | NUR ---
TELEMETRY CALLED @ 0625 HRS TELEMETRY REPORTS THAT THE PATIENTS' HEART RATE SLOWED TO 43 BPM A FEW TIMES DURING THIS SHIFT.
[2023-06-11 07:25] VITALS: BP 139/62
[2023-06-11 08:18] LABS: BASOPHILS ABSOLUTE AUTO 0.03 K/mm3 (0.00-0.23); BASOPHILS PERCENT AUTO 0 % (0-2); EOSINOPHILS ABSOLUTE AUTO 0.49 K/mm3 (0.00-0.68); EOSINOPHILS PERCENT AUTO 7 % (0-6); Hematocrit 34.2 % (37.0-53.0); Hemoglobin 10.7 g/dL (13.5-17.5); IMMATURE GRAN ABSOLUTE AUTO 0.02 K/mm3 (0.00-0.10); IMMATURE GRAN PERCENT AUTO 0 % (0-1); LYMPHOCYTES ABSOLUTE AUTO 1.78 K/mm3 (0.84-5.20); LYMPHOCYTES PERCENT AUTO 25 % (21-46); MONOCYTES ABSOLUTE AUTO 0.61 K/mm3 (0.16-1.47); MONOCYTES PERCENT AUTO 9 % (4-13); Mean Corpuscular HGB 24.8 pg (26.0-34.0); Mean Corpuscular HGB Conc 31.3 g/dL (31.5-36.5); Mean Corpuscular Volume 79 fL (80-100); Mean Platelet Volume 9.9 fL (9.1-12.4); NEUTROPHILS PERCENT AUTO 58 % (41-73); Platelet Count 143 K/mm3 (150-400); RDW Coefficient Variation 16.8 % (11.7-14.2); RDW Standard Deviation 47.7 fL (35.1-46.3); Red Blood Cell Count 4.31 M/mm3 (4.30-5.90); White Blood Cell Count 7.03 K/mm3 (4.00-11.30)
[2023-06-11 08:21] LABS: Albumin, Blood 2.9 g/dL (3.4-5.0); Anion Gap 5 mmol/L (6-16); Blood Urea Nitrogen 22 mg/dL (8-24); Bun/Creatinine Ratio 19.3 (12.0-20.0); CO2, Blood 28 mmol/L (21-32); Calcium, Blood 8.7 mg/dL (8.5-10.1); Chloride, Blood 108 mmol/L (98-108); Creatinine, Blood 1.14 mg/dL (0.60-1.20); Glomerular Filtration Rate 68 (60-); Glucose, Blood 170 mg/dL (70-99); Magnesium, Blood 1.5 mg/dL (1.6-2.4); Phosphorus, Blood 2.8 mg/dL (2.5-4.9); Potassium, Blood 3.6 mmol/L (3.5-5.5); Sodium, Blood 141 mmol/L (136-145)
[2023-06-11] MEDS ORDERED: LACT PO (13:08)
[2023-06-11] MEDS ORDERED: CEFU500T30 PO (13:09)
--- NOTE | 2023-06-11 14:21 | NUR ---
POSITIVE BLOOD CULTURES REPORTED FROM THE LAB AT 1420. GRAM + COCCI IN CLUSTERS GROWING. REPORTED TO DR. RUBI. STATED SHE WILL LOOK INTO IT AND CALL THE PATIENT IF NEEDED.
--- NOTE | 2023-06-11 14:25 | NUR ---
DISCHARGE SUMMARY PATIENT DISCHARGED THIS SHIFT WITH TO DRIVE. IV REMOVED PRIOR TO DISCHARGE, NO COMPLICATIONS. DISCHARGE PACKET GIVEN AND QUESTIONS ANSWERED, VERBALIZED UNDERSTANDING. CHARGE NOTIFIED THIS RN REGARDING POSITIVE BLOOD CX, STATED SHE NOTIFIED DOC. SCRIPTS FAXED TO [facility].
== END 2023-06-11 13:40 | disposition home or self-care (01) | DRG 872 ==
LOC: ER 22:07 → MEDS 22:08
PROVIDERS: Emergency Medicine; Family Medicine; Internal Medicine; Student in an Organized Health Care Education/Training Program; ADMIT Student in an Organized Health Care Education/Training Program
PROC: 3E03329 Introduction of Other Anti-infective into Peripheral Vein, Percutaneous Approach (ICD-10-PCS; principal; 2023-06-10)
PROC: 5A09357 Assistance with Respiratory Ventilation, Less than 24 Consecutive Hours, Continuous Positive Airway Pressure (ICD-10-PCS; 2023-06-10)
PROC: 3E02340 Introduction of Influenza Vaccine into Muscle, Percutaneous Approach (ICD-10-PCS; 2023-06-10)
DX: A41.9 Sepsis, unspecified organism (principal); N39.0 Urinary tract infection, site not specified; E87.20 Acidosis, unspecified; E87.1 Hypo-osmolality and hyponatremia; N17.9 Acute kidney failure, unspecified; R65.20 Severe sepsis without septic shock; E86.0 Dehydration; Z66 Do not resuscitate; E83.42 Hypomagnesemia; E83.39 Other disorders of phosphorus metabolism; I48.0 Paroxysmal atrial fibrillation; E11.9 Type 2 diabetes mellitus without complications; G47.33 Obstructive sleep apnea (adult) (pediatric); N40.0 Benign prostatic hyperplasia without lower urinary tract symptoms; I25.10 Atherosclerotic heart disease of native coronary artery without angina pectoris; I10 Essential (primary) hypertension; I49.3 Ventricular premature depolarization; F32.A Depression, unspecified; G43.909 Migraine, unspecified, not intractable, without status migrainosus; M10.9 Gout, unspecified; Z86.73 Personal history of transient ischemic attack (TIA), and cerebral infarction without residual deficits; Z86.718 Personal history of other venous thrombosis and embolism; Z79.01 Long term (current) use of anticoagulants; Z95.5 Presence of coronary angioplasty implant and graft; Z11.52 Encounter for screening for COVID-19; Z88.8 Allergy status to other drugs, medicaments and biological substances; Z79.84 Long term (current) use of oral hypoglycemic drugs; Z87.891 Personal history of nicotine dependence; Z23 Encounter for immunization
CPT/HCPCS: 0241U; 36415; 70450; 71046; 71260; 74177; 80053; 80069; 81001; 82140; 82803; 82947; 83605; 83735; 84100; 84443; 84484; 85025; 85379; 85610; 85730; 87040; 87086; 87507; 93005; 93010; 94762; 96361; 96365-59; 96366; 96367; 97116; 97162; 99285-25; A9270; G0008; G0378; J0692; J3475; J7120; Q2036; Q9967

== ENCOUNTER 2023-07-02 08:55 | Observation (INO) | payer OTHER ==
[~2023-07-02] VITALS: Ht 172.7 cm; Wt 126.8 kg
[~2023-07-02 08:55] MED LIST changes: +ACET500 PO; +JARDIANCE25 MG PO; +LACT PO; +LISINOPRIL-HCT1 EACH PO; +LORA10ER PO; +NITR100CA PO; +POTA10T PO
[2023-07-02 10:40] LABS: Source, Urine Straight Cath
[2023-07-02 10:46] LABS: BASOPHILS ABSOLUTE AUTO 0.02 K/mm3 (0.00-0.23); BASOPHILS PERCENT AUTO 0 % (0-2); EOSINOPHILS PERCENT AUTO 1 % (0-6); Hematocrit 40.7 % (37.0-53.0); Hemoglobin 12.9 g/dL (13.5-17.5); IMMATURE GRAN ABSOLUTE AUTO 0.03 K/mm3 (0.00-0.10); IMMATURE GRAN PERCENT AUTO 0 % (0-1); LYMPHOCYTES ABSOLUTE AUTO 0.54 K/mm3 (0.84-5.20); LYMPHOCYTES PERCENT AUTO 5 % (21-46); MONOCYTES ABSOLUTE AUTO 0.43 K/mm3 (0.16-1.47); MONOCYTES PERCENT AUTO 4 % (4-13); Mean Corpuscular HGB 25.5 pg (26.0-34.0); Mean Corpuscular HGB Conc 31.7 g/dL (31.5-36.5); Mean Corpuscular Volume 80 fL (80-100); Mean Platelet Volume 9.8 fL (9.1-12.4); NEUTROPHILS ABSOLUTE AUTO 9.87 K/mm3 (1.96-9.15); NEUTROPHILS PERCENT AUTO 90 % (41-73); Platelet Count 143 K/mm3 (150-400); RDW Coefficient Variation 15.9 % (11.7-14.2); Red Blood Cell Count 5.06 M/mm3 (4.30-5.90); White Blood Cell Count 10.99 K/mm3 (4.00-11.30)
[2023-07-02 10:47] LABS: Appearance, Urine Clear (Clear); Bilirubin, Urine Neg (Neg); Blood, Urine Neg (Neg); Color, Urine Yellow (P-Yellow); Glucose Qualitative, Urine 4+ (Neg); Ketones, Urine Neg (Neg); Leukocyte Esterase, Urine Neg (Neg); Nitrite, Urine Neg (Neg); Protein, Urine Neg (Neg); Specific Gravity, Urine 1.015 (1.003-1.022); Urobilinogen, Urine NORM (Normal)
[2023-07-02 11:00] LABS: International Normalized Ratio 2.79; Prothrombin Time Results 27.6 Sec (9.7-11.5)
[2023-07-02 11:09] LABS: Albumin, Blood 3.9 g/dL (3.4-5.0); Bilirubin, Total 0.7 mg/dL (0.1-1.0); Bun/Creatinine Ratio 18.8 (12.0-20.0); Calcium, Blood 8.9 mg/dL (8.5-10.1); Creatinine, Blood 1.28 mg/dL (0.60-1.20); Globulin, Blood 4.1 g/dL (2.2-4.0); Potassium, Blood 3.8 mmol/L (3.5-5.5)
[2023-07-02 15:26] VITALS: BP 136/63
--- NOTE | 2023-07-02 19:26 | NUR ---
SHIFT SUMMARY PT A&OX4. KNIK. PT HAS KEYES CATH THAT WAS PLACED IN ED. PER ED NURSE, KEYES WAS VERY DIFFICULT TO PLACE. MEDICATIONS GIVEN IN ED THAT ARE TURNING URINE ORANGE. AT BEDSIDE AND HELPED WITH ADMIT QUESTIONS. NO C/O PAIN. 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 NO OTHER DEFICITS NOTED. VSS. PT RECIEVED IV MAGNESIUM IN EVENING. BED IN LOWEST POSITION AND CALL LIGHT IN REACH.
[2023-07-02 19:59] VITALS: BP 124/53
[2023-07-03 04:56] VITALS: BP 134/67
[2023-07-03 05:42] LABS: BASOPHILS ABSOLUTE AUTO 0.03 K/mm3 (0.00-0.23); BASOPHILS PERCENT AUTO 0 % (0-2); EOSINOPHILS PERCENT AUTO 7 % (0-6); Hematocrit 30.6 % (37.0-53.0); Hemoglobin 9.9 g/dL (13.5-17.5); IMMATURE GRAN ABSOLUTE AUTO 0.03 K/mm3 (0.00-0.10); IMMATURE GRAN PERCENT AUTO 0 % (0-1); LYMPHOCYTES ABSOLUTE AUTO 1.21 K/mm3 (0.84-5.20); LYMPHOCYTES PERCENT AUTO 14 % (21-46); MONOCYTES ABSOLUTE AUTO 0.61 K/mm3 (0.16-1.47); MONOCYTES PERCENT AUTO 7 % (4-13); Mean Corpuscular HGB 25.5 pg (26.0-34.0); Mean Corpuscular HGB Conc 32.4 g/dL (31.5-36.5); Mean Corpuscular Volume 79 fL (80-100); Mean Platelet Volume 10.1 fL (9.1-12.4); NEUTROPHILS ABSOLUTE AUTO 6.47 K/mm3 (1.96-9.15); NEUTROPHILS PERCENT AUTO 72 % (41-73); Platelet Count 134 K/mm3 (150-400); RDW Coefficient Variation 16.1 % (11.7-14.2); RDW Standard Deviation 45.8 fL (35.1-46.3); Red Blood Cell Count 3.88 M/mm3 (4.30-5.90); White Blood Cell Count 8.95 K/mm3 (4.00-11.30)
[2023-07-03 06:00] LABS: International Normalized Ratio 2.9; Prothrombin Time Results 28.7 Sec (9.7-11.5)
[2023-07-03 06:26] LABS: Bun/Creatinine Ratio 17.1 (12.0-20.0); Calcium, Blood 7.6 mg/dL (8.5-10.1); Creatinine, Blood 1.23 mg/dL (0.60-1.20); Potassium, Blood 3.3 mmol/L (3.5-5.5)
--- NOTE | 2023-07-03 07:19 | NUR ---
SHIFT SUMMARY A/OX4. ROOM AIR. CPAP FROM HOME SET UP. CONT PULSE OX MONITORING. KEYES FOR RETENTION. IV FLUIDS COMPLETED. SHIFT UNREMARKABLE. HAS NOT HAD A BM SINCE ARRIVAL TO UNIT. ABLE TO MAKE NEEDS KNOWN. CALL LIGHT IN REACH. BED LOCKED IN LOW POSITION.
[2023-07-03 07:21] VITALS: BP 124/52
[2023-07-03 15:51] VITALS: BP 126/62
[2023-07-03 19:14] VITALS: BP 97/55
--- NOTE | 2023-07-03 19:41 | NUR ---
SHIFT SUMMARY PT A&OX4. PT WAS GOING TO DC TODAY BUT BLOOD CULTURES CAME BACK POSITIVE. PT WILL LIKELY DC TOMORROW. NO C/O PAIN. PT VERBAILZED FEELING MUCH BETTER. AT BEDSIDE T/O DAY. PT DID C/O OF BURNING SENSATION IN PENIS AT THE END OF SHIFT. CATHETER AND VALERIE CARE PROVIDED. IT APPEARED THAT KEYES TUBING WAS PULLING ON PENIS DURING LEG MOVMENTS. NEW SECURMENT DEVICE PLACED AND PT VERBALIZED RELIEF. NO ACUTE CHANGES. BED IN LOWEST POSITION AND CALL LIGHT IN REACH.
[2023-07-04 03:00] VITALS: BP 130/59
--- NOTE | 2023-07-04 04:56 | NUR ---
SHIFT SUMMARY: PT IS ALERT AND ORIENTED. PT IS CALM AND COOPERATIVE WITH CARE. PT CALLS APPROPRIATELY. PT IS A ONE PERSON ASSIST DURING AMBULATION. PT WORE CPAP FOR HALF OF THE NIGHT, SATS > 90% ON ROOM AIR. PT DENIES PAIN, NAUSEA, VOMITINNG, AND SOB. POSSIBLE DC TODAY. NO ACUTE CHANGES OR COMPLICATIONS OVERNIGHT. BED IN LOW POSITION, CALL LIGHT WITHIN REACH. WILL CONTINUE TO MONITOR.
[2023-07-04 05:43] LABS: International Normalized Ratio 2.71; Prothrombin Time Results 26.9 Sec (9.7-11.5)
[2023-07-04 07:07] VITALS: BP 142/72
[2023-07-04 08:57] LABS: BASOPHILS ABSOLUTE AUTO 0.03 K/mm3 (0.00-0.23); BASOPHILS PERCENT AUTO 0 % (0-2); EOSINOPHILS ABSOLUTE AUTO 0.74 K/mm3 (0.00-0.68); EOSINOPHILS PERCENT AUTO 10 % (0-6); Hematocrit 31.2 % (37.0-53.0); Hemoglobin 9.8 g/dL (13.5-17.5); IMMATURE GRAN ABSOLUTE AUTO 0.02 K/mm3 (0.00-0.10); IMMATURE GRAN PERCENT AUTO 0 % (0-1); LYMPHOCYTES PERCENT AUTO 23 % (21-46); MONOCYTES ABSOLUTE AUTO 0.65 K/mm3 (0.16-1.47); MONOCYTES PERCENT AUTO 9 % (4-13); Mean Corpuscular HGB 25.2 pg (26.0-34.0); Mean Corpuscular HGB Conc 31.4 g/dL (31.5-36.5); Mean Corpuscular Volume 80 fL (80-100); Mean Platelet Volume 10.6 fL (9.1-12.4); NEUTROPHILS ABSOLUTE AUTO 4.27 K/mm3 (1.96-9.15); NEUTROPHILS PERCENT AUTO 58 % (41-73); Platelet Count 153 K/mm3 (150-400); RDW Coefficient Variation 16.3 % (11.7-14.2); RDW Standard Deviation 46.8 fL (35.1-46.3); Red Blood Cell Count 3.89 M/mm3 (4.30-5.90); White Blood Cell Count 7.41 K/mm3 (4.00-11.30)
[2023-07-04 09:08] LABS: Albumin, Blood 2.8 g/dL (3.4-5.0); Albumin/Globulin Ratio 0.8 (0.8-1.8); Bilirubin, Total 0.4 mg/dL (0.1-1.0); Creatinine, Blood 1.13 mg/dL (0.60-1.20); Globulin, Blood 3.4 g/dL (2.2-4.0); Potassium, Blood 3.7 mmol/L (3.5-5.5); Total Protein, Blood 6.2 g/dL (6.4-8.2)
[2023-07-04] MEDS ORDERED: LISI20 PO (12:28)
[2023-07-04] MEDS ORDERED: LEVFLO500 PO (12:29)
--- NOTE | 2023-07-04 13:00 | NUR ---
SHIFT SUMMARY AND DISCHARGE PATIENT ALERT AND INTERACTIVE. PATIENT REQUESTING TO BE INVOLVED IN EDUCATION BECAUSE HE HAS PROBLEMS REMEMBERING. DISCHARGE INSTRUCTIONS REVIEWED WITH . IV DC'D. BELONGINGS SENT WITH PATIENT. ROOM CHECK DONE PRIOR TO PATIENT LEAVING. PATIENT TAKEN OUT VIA WHEELCHAIR BY DERMATOLOGY SALES REPRESENTATIVE. CATHETER DC'D PRIOR TO DISCHARGE AND PATIENT VOIDED X2 AFTER CATHETER REMOVED. PATIENT DENIES ANY BURNING OR PAIN WHEN URINATING. FORSKIN NOTED TO NOT PULL BACK. PENILE HEAD UNABLE TO BE VISUALIZED. EDUCATION PROVIDED TO FAMILY RELATED TO THE INCREASED RISK OF UTI'S WITH INABILITY TO CLEAN PENIS.
== END 2023-07-04 13:01 | disposition home or self-care (01) ==
LOC: ER 08:55 → MEDS 13:04 → ENPENDDIS 07-04 11:58 → MEDS 07-04 13:01
PROVIDERS: Emergency Medicine; Family Medicine; ADMIT Internal Medicine
DX: R78.81 Bacteremia (principal); R65.10 Systemic inflammatory response syndrome (SIRS) of non-infectious origin without acute organ dysfunction; G47.33 Obstructive sleep apnea (adult) (pediatric); I48.0 Paroxysmal atrial fibrillation; N40.0 Benign prostatic hyperplasia without lower urinary tract symptoms; I10 Essential (primary) hypertension; E87.6 Hypokalemia; E83.42 Hypomagnesemia; E87.20 Acidosis, unspecified; E11.9 Type 2 diabetes mellitus without complications; Z66 Do not resuscitate; Z79.899 Other long term (current) drug therapy; Z99.89 Dependence on other enabling machines and devices; I25.10 Atherosclerotic heart disease of native coronary artery without angina pectoris; Z87.891 Personal history of nicotine dependence
CPT/HCPCS: 36415; 51703; 71046; 80048; 80053; 81003; 82947; 83605; 83735; 85025; 85610; 87040; 87077; 94660; 94762; 96361; 96361-59; 96365-59; 96366; 96367; 96375-59; 96376; 99284-25; A9270; G0378; J0696; J1815; J2405; J3475; J7030; J7050

== ENCOUNTER 2024-12-15 02:58 | Inpatient (IN) | payer OTHER ==
[~2024-12-15] VITALS: Ht 177.8 cm; Wt 132.7 kg
[~2024-12-15 02:58] MED LIST changes: +LEVFLO500 PO; +LISI20 PO
[2024-12-15] MEDS ORDERED: Ondansetron HCl 2 MG / ML 2ML Vial ONE (03:40)
[2024-12-15 03:47] LABS: Source, Urine Clean Catch
[2024-12-15] MEDS ORDERED: Ondansetron HCl 2 MG / ML 2ML Vial IV ONE (03:50)
[2024-12-15 03:51] LABS: BASOPHILS ABSOLUTE AUTO 0.02 K/mm3 (0.00-0.23); BASOPHILS PERCENT AUTO 0 % (0-2); EOSINOPHILS ABSOLUTE AUTO 0.04 K/mm3 (0.00-0.68); EOSINOPHILS PERCENT AUTO 1 % (0-6); Hemoglobin 13.6 g/dL (13.5-17.5); IMMATURE GRAN PERCENT AUTO 0 % (0-1); LYMPHOCYTES ABSOLUTE AUTO 0.55 K/mm3 (0.84-5.20); LYMPHOCYTES PERCENT AUTO 12 % (21-46); MONOCYTES ABSOLUTE AUTO 0.02 K/mm3 (0.16-1.47); MONOCYTES PERCENT AUTO 0 % (4-13); Mean Corpuscular HGB 29.4 pg (26.0-34.0); Mean Corpuscular Volume 86 fL (80-100); Mean Platelet Volume 9.5 fL (9.1-12.4); NEUTROPHILS ABSOLUTE AUTO 3.93 K/mm3 (1.96-9.15); NEUTROPHILS PERCENT AUTO 86 % (41-73); Platelet Count 117 K/mm3 (150-400); RDW Coefficient Variation 14.2 % (11.7-14.2); RDW Standard Deviation 44.3 fL (35.1-46.3); Red Blood Cell Count 4.63 M/mm3 (4.30-5.90); White Blood Cell Count 4.56 K/mm3 (4.00-11.30)
[2024-12-15 04:14] LABS: Bilirubin, Urine Neg (Neg); Blood, Urine 2+ (Neg); Glucose Qualitative, Urine 1+ (Neg); Ketones, Urine Neg (Neg); Leukocyte Esterase, Urine Neg (Neg); Nitrite, Urine Pos (Neg); Protein, Urine 3+ (Neg); Specific Gravity, Urine 1.015 (1.003-1.022); Urobilinogen, Urine NORM (Normal)
[2024-12-15 04:15] LABS: Albumin, Blood 3.8 g/dL (3.4-5.0); Bilirubin, Total 0.9 mg/dL (0.1-1.0); Bun/Creatinine Ratio 18.9 (12.0-20.0); Calcium, Blood 8.9 mg/dL (8.5-10.1); Creatinine, Blood 1.06 mg/dL (0.60-1.20); Globulin, Blood 3.7 g/dL (2.2-4.0); Potassium, Blood 3.4 mmol/L (3.5-5.5); Total Protein, Blood 7.5 g/dL (6.4-8.2)
[2024-12-15] MEDS ORDERED: CefTRIAXone Sodium 2,000 MG in NS 100 ML IV ONE (04:25)
[2024-12-15] MEDS ORDERED: NS 1,000 ML IV SCH ×2 (04:30→05:55)
[2024-12-15] MEDS ORDERED: Acetaminophen 500 MG Tab PO ONE (04:30)
[2024-12-15 04:31] LABS: Appearance, Urine Hazy (Clear); Color, Urine Yellow (P-Yellow)
[2024-12-15 04:32] LABS: Bacteria Many /hpf; Red Blood Cells, Urine 0-2 /hpf (0-2); Squamous Epithelial Cells Few /hpf (Few)
[2024-12-15] MEDS ORDERED: Ondansetron HCl 2 MG / ML 2ML Vial IV PRN (05:55)
[2024-12-15] MEDS ORDERED: Potassium Chloride 40 MEQ in NS 250 ML IV ONE (06:55)
[2024-12-15] MEDS ORDERED: Insulin Human Lispro 100 Units/ML 3ML Syringe SC SCH (07:30)
[2024-12-15 08:01] LABS: International Normalized Ratio 2.46; Prothrombin Time Results 24.6 Sec (9.7-11.5)
[2024-12-15 08:04] LABS: Influenza A, PCR NEGATIVE (NEGATIVE); Influenza B, PCR NEGATIVE (NEGATIVE); Resp Syncytial Virus, PCR NEGATIVE (NEGATIVE); SARS-Cov-2 (COVID-19) PCR, MMC NEGATIVE (NEGATIVE)
[2024-12-15] MEDS ORDERED: Enoxaparin 40 MG/0.4 ML SYR SC SCH (09:00)
[2024-12-15 10:08] VITALS: BP 118/63
--- NOTE | 2024-12-15 11:00 | NUR ---
ADMISSION NOTE PATIENT A/OX4, ABLE TO MAKE NEEDS KNOWN. ARRIVED FROM ED WITH , ELSA, AT BEDSIDE. TRANSFERRED TO ROOM 362 VIA GURNEY. POTASSIUM RUNNING THROUGH IV AND Y SITED WITH NORMAL SALINE AT 125ML/HR PER ORDER. SKIN ASSESSMENT COMPLETED, RED MOISR RASH NOTED TO GROIN, SCROTUM, AND PANNUS. MD NOTIFED AND ORDER FOR MICONAZOLE ORDERED. PALLIATIVE CARE ORDER IN PLACE, GIORGI CALLED [facility] [employer] AND ASSISTED PATIENT TOCOMPLETE POLST FORM PATIENT REQUESTING TO BE DNR. TELEMETRY PLACED PER ORDER, NORMAL SINUS IN 80s. PATIENT UNAWARE OF HOME MEDICATION DOSAGES, STATES SHE WILL BRING IN A PAPER COPY OF HIS MEDICATION LIST. ADMISSION ASSESSMENT COMPLETED, NO OTHER CONCERNS AT THIS TIME. WILL CONTINUE TO MONITOR.
[2024-12-15 12:01] VITALS: BP 110/55
--- NOTE | 2024-12-15 13:03 | NUR ---
PT HAS POLST ON FILE, DNR. SPOKE WITH PT AND THIS AM, THEY COMFIRM DNR VIA POLST FROM 2022. PHYSICIAN UPDATED, CODE STATUS UPDATED. PER , PT HAS UPCOMING SURGICAL PROCEDURE AT [place] TO CORRECT FORESKIN ISSUE. PT UNCIRCUMSIZED, BEGINNING TO HAVE TROUBLE KEEPING THE AREA CLEAN USUAL DUE TO AGE-RELATED ANATOMICAL CHANGES. THEY STATE THIS IS IN DIRECT CORRELATION WITH AN INCREASE IN SYMPTOMATIC UTI'S.
[2024-12-15] MEDS ORDERED: Mag Sulfate 1 GM/D5% 100ML 100 ML IV STA (13:08)
[2024-12-15 15:43] VITALS: BP 107/61
--- NOTE | 2024-12-15 17:32 | NUR ---
SHIFT SUMMARY MD CALLED THIS EVENING DUE TO PATIENT COMPLAINING OF SOB. PATIENT WITH CHF AND IV FLUIDS RUNNING AT 125ML/HR. FLUIDS STOPPED AND MD CALLED, NEW ORDER RECIEVED TO DISCONTINUE. CBGs 160-207 THIS SHIFT. REMAINS AT BEDSIDE. TELEMETRY IN PLACE, SINUS RHYTHYM 80s, NO EVENTS NOTED. IV MAGNESIUM REPLACED PER OCT. PATIENT REPORTS TAKE OZEMPIC AT HOME FOR DM2, PATIENT CANNOT RECALL IF HE TOOK HIS DOSE THIS WEEK IT WAS DUE YESTERDAY WHEN SYMPTOMS STARTED AND PATIENT HAD CONFUSION AT THE TIME. PATIENT IS 1 PERSON ASSIST TO BATHROOM, CONTINENT OF URINE WITH "DRIBBLING". NO OTHER CONCERNS AT THIS TIME.
[2024-12-15 19:50] VITALS: BP 97/74
[2024-12-15] MEDS ORDERED: Miconazole Nitrate 2% 85 GM PWD TOP SCH (21:00)
[2024-12-15 23:57] VITALS: BP 127/59
[2024-12-16 04:03] VITALS: BP 130/74
[2024-12-16 04:41] LABS: BASOPHILS ABSOLUTE AUTO 0.05 K/mm3 (0.00-0.23); BASOPHILS PERCENT AUTO 0 % (0-2); EOSINOPHILS ABSOLUTE AUTO 0.14 K/mm3 (0.00-0.68); EOSINOPHILS PERCENT AUTO 1 % (0-6); Hematocrit 32.9 % (37.0-53.0); Hemoglobin 11.2 g/dL (13.5-17.5); IMMATURE GRAN ABSOLUTE AUTO 0.06 K/mm3 (0.00-0.10); IMMATURE GRAN PERCENT AUTO 1 % (0-1); LYMPHOCYTES ABSOLUTE AUTO 1.37 K/mm3 (0.84-5.20); LYMPHOCYTES PERCENT AUTO 12 % (21-46); MONOCYTES ABSOLUTE AUTO 0.78 K/mm3 (0.16-1.47); MONOCYTES PERCENT AUTO 7 % (4-13); Mean Corpuscular HGB 29.2 pg (26.0-34.0); Mean Corpuscular Volume 86 fL (80-100); Mean Platelet Volume 9.9 fL (9.1-12.4); NEUTROPHILS ABSOLUTE AUTO 8.81 K/mm3 (1.96-9.15); NEUTROPHILS PERCENT AUTO 79 % (41-73); Platelet Count 105 K/mm3 (150-400); RDW Coefficient Variation 14.6 % (11.7-14.2); RDW Standard Deviation 45.8 fL (35.1-46.3); Red Blood Cell Count 3.83 M/mm3 (4.30-5.90); White Blood Cell Count 11.21 K/mm3 (4.00-11.30)
[2024-12-16 05:04] LABS: Albumin, Blood 2.9 g/dL (3.4-5.0); Albumin/Globulin Ratio 0.9 (0.8-1.8); Bilirubin, Total 0.6 mg/dL (0.1-1.0); Bun/Creatinine Ratio 22.1 (12.0-20.0); Calcium, Blood 8.1 mg/dL (8.5-10.1); Creatinine, Blood 1.13 mg/dL (0.60-1.20); Globulin, Blood 3.2 g/dL (2.2-4.0); Magnesium, Blood 1.4 mg/dL (1.6-2.4); Potassium, Blood 3.7 mmol/L (3.5-5.5); Total Protein, Blood 6.1 g/dL (6.4-8.2)
[2024-12-16] MEDS ORDERED: CefTRIAXone Sodium 1,000 MG in NS 100 ML IV SCH (06:00)
--- NOTE | 2024-12-16 06:02 | NUR ---
SUMMARY: PT A/OX4, CALLS APPROPRIATELY TO SPECIFY NEEDS AND IS PLEASANT AND COOPERATIVE W/CARE. HE'S SBA W/FWW OOB TO BATHROOM TO VOID AND PULLUPS CHANGED PRN FOR REPORT OF "DRIBBLING". GROIN/PANNUS APPEARS RASHY BUT PT REFUSED MICONAZOLE POWDER WHEN OFFERED AT HS. IV ABX RECEIVED FOR UTI PER EMAR. HE C/O FEELING CONGESTED AND SOB AT TIMES BUT SPO2 IS WNL ON RA, LS ARE CLEAR T/O AND NO S/S RESP OR CARDIAC DISTRESS OBSERVED. RN SUGGESTED POSSIBLY TRIALING NASAL SPRAY BUT PT DENIED NEED AT THIS TIME. HE REMAINS NSR W/1 DEGREE BLOCK AT 70'S BPM. VSS/AFEBRILE AND NO ACUTE CHANGES. HOME MEDS STILL NEED RECONCILLED BUT PT'S SPOUSE PLANS TO PROVIDE LIST TODAY. WILL ENSURE DAY STAFF ARE AWARE AND REPORT TO DAY RN.
[2024-12-16] MEDS ORDERED: Mag Sulfate 1 GM/D5% 100ML 100 ML IV STA (07:39)
[2024-12-16] MEDS ORDERED: Potassium Chloride 20 MEQ TabCR PO ONE (07:40)
[2024-12-16 08:09] VITALS: BP 168/84
[2024-12-16 11:34] VITALS: BP 154/71
[2024-12-16] MEDS ORDERED: LEVFLO500 PO (12:48)
--- NOTE | 2024-12-16 15:32 | NUR ---
DC SUMMARY PT DC THIS SHIFT. D INSTRUCTION GONE OVER WITH PT AND PT WHOM BOTH STATED UNDERSTANDING. PT WAS ESCORTED OUT VIA WHEELCHAIR BY HR SPECIALIST.
== END 2024-12-16 13:29 | disposition home or self-care (01) | DRG 871 ==
LOC: ER 02:58 → MEDS 05:08 → ERHOLD 05:08 → MEDS 10:11
PROVIDERS: Emergency Medicine; ADMIT Internal Medicine
PROC: 3E03329 Introduction of Other Anti-infective into Peripheral Vein, Percutaneous Approach (ICD-10-PCS; principal; 2024-12-15)
PROC: 0T9B70Z Drainage of Bladder with Drainage Device, Via Natural or Artificial Opening (ICD-10-PCS; 2024-12-15)
DX: A41.50 Gram-negative sepsis, unspecified (principal); G92.8 Other toxic encephalopathy; N39.0 Urinary tract infection, site not specified; E87.20 Acidosis, unspecified; R65.20 Severe sepsis without septic shock; I10 Essential (primary) hypertension; I25.10 Atherosclerotic heart disease of native coronary artery without angina pectoris; F32.A Depression, unspecified; M10.9 Gout, unspecified; G47.33 Obstructive sleep apnea (adult) (pediatric); G43.909 Migraine, unspecified, not intractable, without status migrainosus; E86.0 Dehydration; E11.65 Type 2 diabetes mellitus with hyperglycemia; E83.42 Hypomagnesemia; Z86.79 Personal history of other diseases of the circulatory system; Z90.49 Acquired absence of other specified parts of digestive tract; Z88.8 Allergy status to other drugs, medicaments and biological substances; Z79.01 Long term (current) use of anticoagulants; Z79.899 Other long term (current) drug therapy; Z79.890 Hormone replacement therapy; Z86.73 Personal history of transient ischemic attack (TIA), and cerebral infarction without residual deficits; Z95.5 Presence of coronary angioplasty implant and graft; Z87.891 Personal history of nicotine dependence; Z99.89 Dependence on other enabling machines and devices
CPT/HCPCS: 0241U; 36415; 51798; 71045; 80053; 81001; 82947; 83605; 83735; 83880; 85025; 85610; 87077; 87086; 87186; 93005; 93010; 96374; 99285-25; A9270; J0696; J1650; J2405; J3475; J3480; J7030; J7050